=== PATIENT | female | born 1930 | race Caucasian/White ===

== ENCOUNTER 2018-10-29 11:36 | Inpatient (IN) | payer MEDICARE ==
--- NOTE | 2018-10-29 14:34 | CR ---
DATE OF SERVICE: 10/29/18 CLINICAL DATA: Cough. PA AND LATERAL CHEST: Comparison is made to a prior exam dated 10/08/18. The heart size is stable. The aorta is calcified and ectatic. There is persistent increased density in the left lung base consistent with basilar atelectasis or infiltrate. There is mild progression from the prior exam. There is blunting of both costophrenic angles consistent with bilateral pleural effusions. The exam is otherwise unchanged from the prior. Continued followup is recommended. [id number] [facility]
[2018-10-29] MEDS ORDERED: Furosemide 20 MG/2 ML VIAL IVPUSH ONE (14:53)
[2018-10-29] MEDS ORDERED: Levofloxacin/Dextrose 5%-Water 500 MG in Premix Bag 1 BAG IV SCH (15:00)
[2018-10-29] MEDS ORDERED: cefTRIAXone 1 GM in Sodium Chloride 0.9% 50 ML IV SCH (15:00)
[2018-10-29] MEDS: Albuterol/Ipratropium 3.0-0.5 MG/3 ML Neb Soln NEB SCH ×2 (15:15→21:50)
[2018-10-29] MEDS ORDERED: Levofloxacin/Dextrose 5%-Water 100 ML IV ONE (15:56)
--- NOTE | 2018-10-29 17:24 | PCM.HP.2 ---
H&P History of Present Illness - General Date of Service: 10/29/18 Admit Problem/Dx: Admission Diagnosis/Problem Admission Diagnosis/Problem Pneumonia Source of Information: Patient, RN, Other (friend) History Limitations: Reports: No Limitations - History of Present Illness Initial Comments - Free Text/Narative: 88 yr female with cough and congestion, pneumonia, seen in the clinic today, Chest X-ray with right lower lobe pneumonia and SpO2 of 80% on room air, no fever and no leukocytosis noted. She does live alone and is very ill and hospitalized. States no immediate family in the area. Friend states her appetite is poor and not doing very well. She did have this increase in cough and congestion about 1 month ago and did get some better and now symptoms are worse. - Related Data Allergies/Adverse Reactions: Allergies Allergy/AdvReac Type Severity Reaction Status Date / Time erythromycin base Allergy Rash Verified 12/25/15 12:03 sulfamethoxazole Allergy Vomiting Verified 12/25/15 12:03 [From Bactrim] trimethoprim [From Bactrim] Allergy Vomiting Verified 12/25/15 12:03 Home Medications: Home Meds glipiZIDE [Glipizide Xl] 10 mg PO DAILY 06/20/14 [History] metFORMIN HCl [Metformin HCl] 850 mg PO BID 06/20/14 [History] Apixaban [Eliquis] 5 mg PO BID 12/25/15 [History] Aspirin [Sedrick Chewable] 81 mg PO DAILY 12/25/15 [History] Carvedilol 12.5 mg PO BID 12/25/15 [History] Clopidogrel [Plavix] 75 mg PO DAILY 12/25/15 [History] Hydrochlorothiazide 25 mg PO DAILY 12/25/15 [History] Nitroglycerin [IJP: Nitroglycerin] 0.4 mg SL ASDIRECTED 12/25/15 [History] Pantoprazole Sodium 40 mg PO ACBREAKFAST 12/25/15 [History] atorvaSTATin Calcium [Atorvastatin Calcium] 40 mg PO QPM 12/25/15 [History] Losartan [Cozaar] 25 mg PO DAILY 10/29/18 [History] H&P Review of Systems - Review of Systems: Review Of Systems: See Below General: Reports: Weakness. Denies: Fever, Chills Pulmonary: Reports: Shortness of Breath, Cough, Sputum Cardiovascular: Reports: Dyspnea on Exertion, Edema. Denies: Chest Pain, Palpitations Gastrointestinal: Denies: Abdominal Pain, Constipation, Diarrhea Genitourinary: Denies: Dysuria Psychiatric: Reports: No Symptoms Neurological: Reports: No Symptoms Exam - Exam Exam: See Below - Vital Signs Vital Signs: Last Vital Signs Temp 98.1 F 10/29/18 14:47 Pulse 65 10/29/18 14:47 Resp 20 10/29/18 14:47 BP 155/89 H 10/29/18 14:47 Pulse Ox 91 L 10/29/18 15:05 Weight: 214 lb 6.4 oz - Exam General: Alert, Oriented, Cooperative, Mild Distress HEENT: PERRLA, Mucosa Moist & [place] Neck: Supple, Trachea Midline Lungs: Crackles (to bases), Rhonchi (mid lung hernandez) Cardiovascular: Regular Rate, Regular Rhythm GI/Abdominal Exam: Normal Bowel Sounds, Soft, Non-Tender Extremities: Normal Range of Motion, Normal Capillary Refill, Pedal Edema, Other (edema about 1/3 up lower legs, worse to right leg) Peripheral Pulses: 2+: Dorsalis Pedis (L), Dorsalis Pedis (R) Skin: Warm, Dry Neuro Extensive - Mental Status: Alert, Oriented x3, Normal Mood/Affect, Normal Cognition Psychiatric: Alert, Normal Affect, Normal Mood - Patient Data Lab Results Last 24 hrs: Laboratory Results - last 24 hr 10/29/18 10/29/18 Range/Units 11:45 11:45 WBC 6.5 (4.0-11.0) K/uL RBC 3.53 L (3.80-5.80) M/uL Hgb 11.1 L (11.5-16.5) g/dL Hct 36.6 L (37.0-47.0) % MCV 104 H (76-96) fL MCH 31.4 (27.0-32.0) pg MCHC 30.3 L (31.0-35.0) g/dL RDW 16.0 (11.0-16.0) % Plt Count 228 (150-500) K/uL MPV 9.9 (6.0-10.0) fL Neut % (Auto) 75.6 H (45.0-70.0) % Lymph % (Auto) 14.4 L (20.0-40.0) % [place] % (Auto) 7.4 (3.0-10.0) % Eos % (Auto) 2.3 (1.0-5.0) % Baso % (Auto) 0.3 (0.0-0.5) % Neut # (Auto) 4.94 (2.00-7.50) K/uL Lymph # (Auto) 0.94 L (1.50-4.00) K/uL [place] # (Auto) 0.48 (0.20-0.80) K/uL Eos # (Auto) 0.15 (0.04-0.40) K/uL Baso # (Auto) 0.02 (0.02-0.10) K/uL Sodium 142 (136-145) mmol/L Potassium 5.3 H (3.5-5.1) mmol/L Chloride 109 H (98-107) mmol/L Carbon Dioxide 27.4 (21.0-32.0) mmol/L Anion Gap 10.9 (5.0-15.0) mmol/L BUN 35 H (8-26) mg/dL Creatinine 1.41 H (0.55-1.02) mg/dL Est Cr Clr Drug Dosing TNP Estimated GFR (MDRD) 35 L (>60) MLS/MIN BUN/Creatinine Ratio 24.8 (6-25) Glucose 169 H (74-100) mg/dL Calcium 8.5 (8.5-10.1) mg/dL Result Diagrams: 10/29/18 11:45 10/29/18 11:45 - Problem List (1) Pneumonia SNOMED Code(s): 566987235 ICD Code: J18.9 - PNEUMONIA, UNSPECIFIED ORGANISM Status: Acute Current Visit: Yes (2) Swelling of both lower extremities SNOMED Code(s): 842090282 ICD Code: M79.89 - OTHER SPECIFIED SOFT TISSUE DISORDERS Status: Acute Current Visit: Yes (3) Diabetes mellitus SNOMED Code(s): 96968524 ICD Code: E11.9 - TYPE 2 DIABETES MELLITUS WITHOUT COMPLICATIONS Status: Acute Current Visit: Yes Problem List Initiated/Reviewed/Updated: Yes Orders Last 24hrs: Active Orders 24 hr Category Date Time Status Patient Status [ADT] Routine ADT 10/29/18 14:47 Active Bedrest Bathroom Privileges [RC] ASDIRECTED Care 10/29/18 14:47 Active Blood Glucose Check, Bedside [RC] TIDAC Care 10/29/18 14:53 Active Oxygen Therapy [RC] PRN Care 10/29/18 14:47 Active RT Aerosol Therapy [RC] ASDIRECTED Care 10/29/18 14:49 Active Vital Signs [RC] Q4H Care 10/29/18 14:47 Active CULTURE MRSA SURVEY [] Routine Lab 10/29/18 14:49 Received Albuterol/Ipratropium [DuoNeb 3.0-0.5 MG/3 ML] Med 10/29/18 15:00 Active 3 ml NEB Q6H Levofloxacin/Dextrose 5%-Water [Levaquin in D5W 500 MG/ Med 10/30/18 08:00 Active 100 ML] 100 ml IV DAILY Levofloxacin/Dextrose 5%-Water [Levaquin in D5W 500 MG/ Med 10/29/18 15:00 Active 100 ML] 500 mg Premix Bag 1 bag IV ASDIRECTED Medication Orders Albuterol/Ipratropium (Duoneb 3.0-0.5 Mg/3 Ml) 3 ml NEB Q6H [facility] Last Admin: 10/29/18 15:15 Dose: 3 ml Levofloxacin/Dextrose 500 mg/ (Premix) 100 mls @ 100 mls/hr IV ASDIRECTED [facility] Stop: 10/29/18 23:59 Last Admin: 10/29/18 16:25 Dose: 100 mls/hr Levofloxacin/Dextrose (Levaquin In D5w 500 Mg/100 Ml) 100 mls @ 100 mls/hr IV DAILY [facility] Stop: 11/05/18 23:59
[2018-10-29] MEDS: Hydrochlorothiazide 25 MG Tab PO SCH (18:27)
[2018-10-29] MEDS: Apixaban 5 MG Tab PO SCH (20:46)
[2018-10-29] MEDS: Carvedilol 12.5 MG Tab PO SCH (20:46)
[2018-10-30] MEDS: Albuterol/Ipratropium 3.0-0.5 MG/3 ML Neb Soln NEB SCH ×4 (03:55→20:07)
[2018-10-30] MEDS ORDERED: Albuterol/Ipratropium 3.0-0.5 MG/3 ML Neb Soln ONE ×3 (04:00→15:51)
[2018-10-30] MEDS: Pantoprazole 40 MG Tab.CR PO SCH (06:37)
[2018-10-30] MEDS ORDERED: Furosemide 40 MG/4 ML VIAL IVPUSH ONE (08:32)
--- NOTE | 2018-10-30 08:39 | PCM.PN ---
- General Info Date of Service: 10/30/18 Admission Dx/Problem (Free Text): Admission Diagnosis/Problem Admission Diagnosis/Problem Pneumonia Subjective Update: States she continues with shortness of breath, but is improved. - Review of Systems General: Reports: Weakness. Denies: Fever Pulmonary: Reports: Shortness of Breath, Cough Cardiovascular: Reports: Dyspnea on Exertion, Edema. Denies: Chest Pain, Palpitations Genitourinary: Reports: Other (Staff report foul smelling urine today). Denies : Dysuria, Pain Neurological: Reports: No Symptoms Psychiatric: Reports: No Symptoms - Patient Data Vitals - Most Recent: Last Vital Signs Temp 98.2 F 10/30/18 06:00 Pulse 62 10/30/18 06:00 Resp 18 10/30/18 06:00 BP 148/77 H 10/30/18 06:00 Pulse Ox 94 L 10/30/18 06:00 Weight - Most Recent: 214 lb 6.4 oz I&O - Last 24 Hours: Intake & Output 10/29/18 10/30/18 10/30/18 22:59 06:59 14:59 Intake Total 100 Balance 100 Lab Results Last 24 Hours: Laboratory Results - last 24 hr 10/29/18 10/29/18 10/29/18 Range/Units 11:45 11:45 16:16 WBC 6.5 (4.0-11.0) K/uL RBC 3.53 L (3.80-5.80) M/uL Hgb 11.1 L (11.5-16.5) g/dL Hct 36.6 L (37.0-47.0) % MCV 104 H (76-96) fL MCH 31.4 (27.0-32.0) pg MCHC 30.3 L (31.0-35.0) g/dL RDW 16.0 (11.0-16.0) % Plt Count 228 (150-500) K/uL MPV 9.9 (6.0-10.0) fL Neut % (Auto) 75.6 H (45.0-70.0) % Lymph % (Auto) 14.4 L (20.0-40.0) % [place] % (Auto) 7.4 (3.0-10.0) % Eos % (Auto) 2.3 (1.0-5.0) % Baso % (Auto) 0.3 (0.0-0.5) % Neut # (Auto) 4.94 (2.00-7.50) K/uL Lymph # (Auto) 0.94 L (1.50-4.00) K/uL [place] # (Auto) 0.48 (0.20-0.80) K/uL Eos # (Auto) 0.15 (0.04-0.40) K/uL Baso # (Auto) 0.02 (0.02-0.10) K/uL Sodium 142 (136-145) mmol/L Potassium 5.3 H (3.5-5.1) mmol/L Chloride 109 H (98-107) mmol/L Carbon Dioxide 27.4 (21.0-32.0) mmol/L Anion Gap 10.9 (5.0-15.0) mmol/L BUN 35 H (8-26) mg/dL Creatinine 1.41 H (0.55-1.02) mg/dL Est Cr Clr Drug Dosing TNP Estimated GFR (MDRD) 35 L (>60) MLS/MIN BUN/Creatinine Ratio 24.8 (6-25) Glucose 169 H (74-100) mg/dL POC Glucose 81 (74-110) mg/dL Calcium 8.5 (8.5-10.1) mg/dL 10/30/18 10/30/18 Range/Units 07:20 07:20 WBC 7.7 (4.0-11.0) K/uL RBC 3.37 L (3.80-5.80) M/uL Hgb 10.5 L (11.5-16.5) g/dL Hct 34.7 L (37.0-47.0) % MCV 103 H (76-96) fL MCH 31.2 (27.0-32.0) pg MCHC 30.3 L (31.0-35.0) g/dL RDW 16.0 (11.0-16.0) % Plt Count 216 (150-500) K/uL MPV 9.8 (6.0-10.0) fL Neut % (Auto) 69.7 (45.0-70.0) % Lymph % (Auto) 16.3 L (20.0-40.0) % [place] % (Auto) 9.4 (3.0-10.0) % Eos % (Auto) 4.3 (1.0-5.0) % Baso % (Auto) 0.3 (0.0-0.5) % Neut # (Auto) 5.35 (2.00-7.50) K/uL Lymph # (Auto) 1.25 L (1.50-4.00) K/uL [place] # (Auto) 0.72 (0.20-0.80) K/uL Eos # (Auto) 0.33 (0.04-0.40) K/uL Baso # (Auto) 0.02 (0.02-0.10) K/uL Sodium 142 (136-145) mmol/L Potassium 4.9 (3.5-5.1) mmol/L Chloride 105 (98-107) mmol/L Carbon Dioxide 33.0 H D (21.0-32.0) mmol/L Anion Gap 8.9 (5.0-15.0) mmol/L BUN 33 H (8-26) mg/dL Creatinine 1.20 H (0.55-1.02) mg/dL Est Cr Clr Drug Dosing 35.17 Estimated GFR (MDRD) 43 L (>60) MLS/MIN BUN/Creatinine Ratio 27.5 H (6-25) Glucose 73 L D (74-100) mg/dL POC Glucose (74-110) mg/dL Calcium 8.5 (8.5-10.1) mg/dL Med Orders - Current: Current Medications Albuterol/Ipratropium (Duoneb 3.0-0.5 Mg/3 Ml) 3 ml NEB Q6H [facility] Last Admin: 10/30/18 03:55 Dose: 3 ml Apixaban (Eliquis) 5 mg PO BID [facility] Last Admin: 10/29/18 20:46 Dose: 5 mg Aspirin (Halfprin) 81 mg PO DAILY [facility] Carvedilol (Coreg) 12.5 mg PO BID [facility] Last Admin: 10/29/18 20:46 Dose: 12.5 mg Clopidogrel Bisulfate (Plavix) 75 mg PO DAILY [facility] Furosemide (Lasix) 40 mg IVPUSH NOW ONE Stop: 10/30/18 08:33 Hydrochlorothiazide (Hydrochlorothiazide) 25 mg PO DAILY [facility] Last Admin: 10/29/18 18:27 Dose: Not Given Levofloxacin/Dextrose (Levaquin In D5w 500 Mg/100 Ml) 100 mls @ 100 mls/hr IV DAILY [facility] Stop: 11/05/18 23:59 Non-Formulary Medication (Metformin Hcl [Metformin Hcl]) 850 mg PO BID [facility] Pantoprazole Sodium (Protonix) 40 mg PO ACBREAKFAST [facility] Last Admin: 10/30/18 06:37 Dose: 40 mg Valsartan (Diovan) 40 mg PO DAILY [facility] Discontinued Medications Albuterol/Ipratropium (Duoneb 3.0-0.5 Mg/3 Ml) Confirm Administered Dose 3 ml .ROUTE .STK-MED ONE Stop: 10/30/18 04:01 Last Admin: 10/30/18 05:04 Dose: Not Given Furosemide (Lasix) 20 mg IVPUSH ONETIME ONE Stop: 10/29/18 14:54 Last Admin: 10/29/18 16:19 Dose: 20 mg Ceftriaxone Sodium 1 gm/ (Sodium Chloride) 50 mls @ 200 mls/hr IV Q24H [facility] Levofloxacin/Dextrose 500 mg/ (Premix) 100 mls @ 100 mls/hr IV ASDIRECTED [facility] Stop: 10/29/18 23:59 Last Admin: 10/29/18 16:25 Dose: 100 mls/hr Levofloxacin/Dextrose (Levaquin In D5w 500 Mg/100 Ml) Confirm Administered Dose 100 mls @ as directed IV .STK-MED ONE Stop: 10/29/18 15:57 Last Admin: 10/29/18 16:20 Dose: Not Given - Exam Quality Assessment: Supplemental Oxygen General: Alert, Oriented, Cooperative HEENT: Mucous Membr. Moist/[place] Neck: Supple, Trachea Midline Lungs: Decreased Breath Sounds, Crackles (bases bilaterally). No: Rhonchi, Wheezing Cardiovascular: Regular Rate, Regular Rhythm GI/Abdominal Exam: Normal Bowel Sounds, Soft, Non-Tender Extremities: Pedal Edema, Other (edema improved, persist 1/3 of lower leg, bilaterally) Peripheral Pulses: 2+: Dorsalis Pedis (L), Dorsalis Pedis (R) Skin: Warm, Dry Psy/Mental Status: Alert, Normal Affect, Normal Mood - Problem List & Annotations (1) Pneumonia SNOMED Code(s): 934655923 Code(s): J18.9 - PNEUMONIA, UNSPECIFIED ORGANISM Status: Acute Current Visit: Yes (2) Swelling of both lower extremities SNOMED Code(s): 475567603 Code(s): M79.89 - OTHER SPECIFIED SOFT TISSUE DISORDERS Status: Acute Current Visit: Yes (3) Diabetes mellitus SNOMED Code(s): 16968746 Code(s): E11.9 - TYPE 2 DIABETES MELLITUS WITHOUT COMPLICATIONS Status: Acute Current Visit: Yes - Problem List Review Problem List Initiated/Reviewed/Updated: Yes - My Orders Last 24 Hours: My Active Orders 10/29/18 14:47 Patient Status [ADT] Routine Bedrest Bathroom Privileges [RC] ASDIRECTED Oxygen Therapy [RC] PRN Vital Signs [RC] Q4H 10/29/18 14:49 RT Aerosol Therapy [RC] ASDIRECTED CULTURE MRSA SURVEY [] Routine 10/29/18 14:53 Blood Glucose Check, Bedside [RC] TIDAC 10/29/18 15:00 Albuterol/Ipratropium [DuoNeb 3.0-0.5 MG/3 ML] 3 ml NEB Q6H 10/29/18 17:30 hydroCHLOROthiazide 25 mg PO DAILY 10/29/18 17:32 Weight, Daily [Height and Weight] [RC] DAILY 10/29/18 20:00 Apixaban [Eliquis] 5 mg PO BID Carvedilol [Coreg] 12.5 mg PO BID metFORMIN HCl [Metformin HCl] 850 mg PO BID 10/30/18 07:00 Pantoprazole [ProTONIX] 40 mg PO ACBREAKFAST 10/30/18 08:00 Aspirin [Halfprin] 81 mg PO DAILY Clopidogrel [Plavix] 75 mg PO DAILY Levofloxacin/Dextrose 5%-Water [Levaquin in D5W 500 MG/100 ML] 100 ml IV DAILY Valsartan [Diovan] 40 mg PO DAILY 10/30/18 08:32 Furosemide [Lasix] 40 mg IVPUSH NOW ONE 10/30/18 Breakfast Consistent Carbohydrate Diet [DIET] - Plan Plan:: Pneumonia: CBC repeat and no leukocytosis noted. Continue with Levofloxacin daily. Swelling to lower extremities: Lasix 40 mg IV X 1 today. Daily weights. Repeat labs in am.
[2018-10-30] MEDS: Valsartan 40 MG Tab PO SCH (08:51)
[2018-10-30] MEDS: Aspirin 81 MG Tab.EC PO SCH (08:51)
[2018-10-30] MEDS: Apixaban 5 MG Tab PO SCH ×2 (08:51→22:54)
[2018-10-30] MEDS: METFORMIN HCL 850 MG PO SCH ×3 (08:51→22:55)
[2018-10-30] MEDS: Clopidogrel 75 MG Tab PO SCH (08:53)
[2018-10-30] MEDS: Hydrochlorothiazide 25 MG Tab PO SCH (08:53)
[2018-10-30] MEDS: Carvedilol 12.5 MG Tab PO SCH ×2 (08:53→20:03)
[2018-10-30] MEDS: Levofloxacin/Dextrose 5%-Water 100 ML IV SCH (08:56)
[2018-10-30] MEDS ORDERED: Furosemide 40 MG/4 ML VIAL ONE (11:30)
[2018-10-30] MEDS: Melatonin 3 MG Tab PO SCH (20:06)
[2018-10-30] MEDS: Codeine/guaiFENesin 100-10 MG/5 ML Syrup 5 ML Cup PO PRN (21:00)
[2018-10-31] MEDS ORDERED: Albuterol/Ipratropium 3.0-0.5 MG/3 ML Neb Soln ONE ×3 (03:06→15:40)
[2018-10-31] MEDS: Albuterol/Ipratropium 3.0-0.5 MG/3 ML Neb Soln NEB SCH ×4 (06:35→20:12)
[2018-10-31] MEDS: Aspirin 81 MG Tab.EC PO SCH (08:24)
[2018-10-31] MEDS: Clopidogrel 75 MG Tab PO SCH (08:24)
[2018-10-31] MEDS: Codeine/guaiFENesin 100-10 MG/5 ML Syrup 5 ML Cup PO PRN ×3 (08:24→20:18)
[2018-10-31] MEDS: Hydrochlorothiazide 25 MG Tab PO SCH (08:24)
[2018-10-31] MEDS: Valsartan 40 MG Tab PO SCH (08:24)
[2018-10-31] MEDS: Apixaban 5 MG Tab PO SCH ×2 (08:25→20:12)
[2018-10-31] MEDS: Carvedilol 12.5 MG Tab PO SCH ×2 (08:25→20:11)
[2018-10-31] MEDS: Pantoprazole 40 MG Tab.CR PO SCH (08:25)
--- NOTE | 2018-10-31 08:54 | PCM.PN ---
- General Info Date of Service: 10/31/18 Admission Dx/Problem (Free Text): Admission Diagnosis/Problem Admission Diagnosis/Problem Pneumonia Subjective Update: States her cough persists and not feeling much better. Staff report pt sleeping improved, coughing less and weight loss with less peripheral edema. Functional Status: Reports: Pain Controlled, Tolerating Diet, Urinating, Incentive Spirometry - Review of Systems General: Reports: Weakness HEENT: Reports: Glasses. Denies: Headaches, Sore Throat Pulmonary: Reports: Cough, Sputum Cardiovascular: Reports: Dyspnea on Exertion, Edema. Denies: Chest Pain, Palpitations Gastrointestinal: Reports: Decreased Appetite. Denies: Diarrhea, Nausea Genitourinary: Reports: No Symptoms Musculoskeletal: Reports: No Symptoms Skin: Reports: No Symptoms Neurological: Reports: No Symptoms - Patient Data Vitals - Most Recent: Last Vital Signs Temp 98.3 F 10/30/18 16:45 Pulse 57 L 10/31/18 08:25 Resp 18 10/30/18 06:00 BP 147/58 H 10/31/18 08:25 Pulse Ox 98 10/30/18 16:45 Weight - Most Recent: 209 lb 8 oz I&O - Last 24 Hours: Intake & Output 10/30/18 10/31/18 10/31/18 22:59 06:59 14:59 Intake Total 1800 50 Balance 1800 50 Lab Results Last 24 Hours: Laboratory Results - last 24 hr 10/30/18 10/30/18 10/31/18 Range/Units 10:57 15:49 07:15 WBC 6.2 (4.0-11.0) K/uL RBC 3.19 L (3.80-5.80) M/uL Hgb 9.9 L (11.5-16.5) g/dL Hct 32.9 L (37.0-47.0) % MCV 103 H (76-96) fL MCH 31.0 (27.0-32.0) pg MCHC 30.1 L (31.0-35.0) g/dL RDW 15.8 (11.0-16.0) % Plt Count 233 (150-500) K/uL MPV 9.8 (6.0-10.0) fL Neut % (Auto) 63.3 (45.0-70.0) % Lymph % (Auto) 20.8 (20.0-40.0) % [place] % (Auto) 10.6 H (3.0-10.0) % Eos % (Auto) 5.0 (1.0-5.0) % Baso % (Auto) 0.3 (0.0-0.5) % Neut # (Auto) 3.95 (2.00-7.50) K/uL Lymph # (Auto) 1.30 L (1.50-4.00) K/uL [place] # (Auto) 0.66 (0.20-0.80) K/uL Eos # (Auto) 0.31 (0.04-0.40) K/uL Baso # (Auto) 0.02 (0.02-0.10) K/uL Sodium (136-145) mmol/L Potassium (3.5-5.1) mmol/L Chloride (98-107) mmol/L Carbon Dioxide (21.0-32.0) mmol/L Anion Gap (5.0-15.0) mmol/L BUN (8-26) mg/dL Creatinine (0.55-1.02) mg/dL Est Cr Clr Drug Dosing mL/min Estimated GFR (MDRD) (>60) MLS/MIN BUN/Creatinine Ratio (6-25) Glucose (74-100) mg/dL POC Glucose 129 H 73 L (74-110) mg/dL Calcium (8.5-10.1) mg/dL 10/31/18 Range/Units 07:15 WBC (4.0-11.0) K/uL RBC (3.80-5.80) M/uL Hgb (11.5-16.5) g/dL Hct (37.0-47.0) % MCV (76-96) fL MCH (27.0-32.0) pg MCHC (31.0-35.0) g/dL RDW (11.0-16.0) % Plt Count (150-500) K/uL MPV (6.0-10.0) fL Neut % (Auto) (45.0-70.0) % Lymph % (Auto) (20.0-40.0) % [place] % (Auto) (3.0-10.0) % Eos % (Auto) (1.0-5.0) % Baso % (Auto) (0.0-0.5) % Neut # (Auto) (2.00-7.50) K/uL Lymph # (Auto) (1.50-4.00) K/uL [place] # (Auto) (0.20-0.80) K/uL Eos # (Auto) (0.04-0.40) K/uL Baso # (Auto) (0.02-0.10) K/uL Sodium 140 (136-145) mmol/L Potassium 5.4 H (3.5-5.1) mmol/L Chloride 102 (98-107) mmol/L Carbon Dioxide 33.3 H (21.0-32.0) mmol/L Anion Gap 10.1 (5.0-15.0) mmol/L BUN 34 H (8-26) mg/dL Creatinine 1.43 H (0.55-1.02) mg/dL Est Cr Clr Drug Dosing 29.51 mL/min Estimated GFR (MDRD) 35 L (>60) MLS/MIN BUN/Creatinine Ratio 23.8 (6-25) Glucose 118 H D (74-100) mg/dL POC Glucose (74-110) mg/dL Calcium 7.9 L (8.5-10.1) mg/dL [place] Results Last 24 Hours: Microbiology 10/29/18 14:49 MRSA Surveillance Culture - Final Nasal, Right NO MRSA ISOLATED Med Orders - Current: Current Medications Albuterol/Ipratropium (Duoneb 3.0-0.5 Mg/3 Ml) 3 ml NEB Q6H [facility] [place] Last Admin: 10/31/18 06:35 Dose: Not Given Apixaban (Eliquis) 5 mg PO BID [facility] [place] Last Admin: 10/31/18 08:25 Dose: 5 mg Aspirin (Halfprin) 81 mg PO DAILY [facility] [place] Last Admin: 10/31/18 08:24 Dose: 81 mg Carvedilol (Coreg) 12.5 mg PO BID [facility] Last Admin: 10/31/18 08:25 Dose: 12.5 mg Clopidogrel Bisulfate (Plavix) 75 mg PO DAILY [facility] Last Admin: 10/31/18 08:24 Dose: 75 mg Guaifenesin/Codeine Phosphate (Robitussin Ac) 5 ml PO Q4H PRN PRN Reason: Cough Last Admin: 10/31/18 08:24 Dose: 5 ml Hydrochlorothiazide (Hydrochlorothiazide) 25 mg PO DAILY [facility] Last Admin: 10/31/18 08:24 Dose: 25 mg Levofloxacin (Levaquin) 500 mg PO Q24H [facility] Melatonin (Melatonin) 3 mg PO BEDTIME [facility] Last Admin: 10/30/18 20:06 Dose: 3 mg Non-Formulary Medication (Metformin Hcl [Metformin Hcl]) 850 mg PO BID [facility] [place] Last Admin: 10/30/18 22:55 Dose: Not Given Pantoprazole Sodium (Protonix) 40 mg PO ACBREAKFAST [facility] Last Admin: 10/31/18 08:25 Dose: 40 mg Valsartan (Diovan) 20 mg PO DAILY [facility] Discontinued Medications Albuterol/Ipratropium (Duoneb 3.0-0.5 Mg/3 Ml) Confirm Administered Dose 3 ml .ROUTE .STK-MED ONE Stop: 10/30/18 04:01 Last Admin: 10/30/18 05:04 Dose: Not Given Albuterol/Ipratropium (Duoneb 3.0-0.5 Mg/3 Ml) Confirm Administered Dose 3 ml .ROUTE .STK-MED ONE Stop: 10/30/18 09:58 Last Admin: 10/30/18 11:23 Dose: Not Given Albuterol/Ipratropium (Duoneb 3.0-0.5 Mg/3 Ml) Confirm Administered Dose 3 ml .ROUTE .STK-MED ONE Stop: 10/30/18 15:52 Last Admin: 10/30/18 16:14 Dose: Not Given Albuterol/Ipratropium (Duoneb 3.0-0.5 Mg/3 Ml) Confirm Administered Dose 3 ml .ROUTE .STK-MED ONE Stop: 10/31/18 03:07 Last Admin: 10/31/18 05:02 Dose: Not Given Albuterol/Ipratropium (Duoneb 3.0-0.5 Mg/3 Ml) Confirm Administered Dose 3 ml .ROUTE .STK-MED ONE Stop: 10/31/18 08:51 Furosemide (Lasix) 20 mg IVPUSH ONETIME ONE Stop: 10/29/18 14:54 Last Admin: 10/29/18 16:19 Dose: 20 mg Furosemide (Lasix) 40 mg IVPUSH NOW ONE Stop: 10/30/18 08:33 Last Admin: 10/30/18 11:37 Dose: 40 mg Furosemide (Lasix) Confirm Administered Dose 40 mg .ROUTE .STK-MED ONE Stop: 10/30/18 11:31 Last Admin: 10/30/18 11:49 Dose: Not Given Ceftriaxone Sodium 1 gm/ (Sodium Chloride) 50 mls @ 200 mls/hr IV Q24H [facility] [place] Levofloxacin/Dextrose 500 mg/ (Premix) 100 mls @ 100 mls/hr IV ASDIRECTED [facility] [place] Stop: 10/29/18 23:59 Last Admin: 10/29/18 16:25 Dose: 100 mls/hr Levofloxacin/Dextrose (Levaquin In D5w 500 Mg/100 Ml) 100 mls @ 100 mls/hr IV DAILY [facility] [place] Stop: 11/05/18 23:59 Last Admin: 10/30/18 08:56 Dose: 100 mls/hr Levofloxacin/Dextrose (Levaquin In D5w 500 Mg/100 Ml) Confirm Administered Dose 100 mls @ as directed IV .STK-MED ONE Stop: 10/29/18 15:57 Last Admin: 10/29/18 16:20 Dose: Not Given Valsartan (Diovan) 40 mg PO DAILY [facility] [place] Last Admin: 10/31/18 08:24 Dose: 40 mg - Exam Quality Assessment: Supplemental Oxygen General: Alert, Oriented, Cooperative, No Acute Distress HEENT: Mucous Membr. Moist/[place] Neck: Supple, Trachea Midline, No JVD Lungs: Crackles (left base), Rhonchi (middle lung hernandez bilaterally), Other ( harsh, barky cough) Cardiovascular: Regular Rate, Regular Rhythm GI/Abdominal Exam: Normal Bowel Sounds, Soft, Non-Tender Extremities: Pedal Edema, Other (tenderness to right lower leg with palpation) Peripheral Pulses: 2+: Dorsalis Pedis (L), Dorsalis Pedis (R) Skin: Warm, Dry Neurological: No New Focal Deficit Psy/Mental Status: Alert, Normal Affect, Normal Mood - Problem List & Annotations (1) Pneumonia SNOMED Code(s): 164414251 Code(s): J18.9 - PNEUMONIA, UNSPECIFIED ORGANISM Status: Acute Current Visit: Yes (2) Swelling of both lower extremities SNOMED Code(s): 292367167 Code(s): M79.89 - OTHER SPECIFIED SOFT TISSUE DISORDERS Status: Acute Current Visit: Yes (3) Diabetes mellitus SNOMED Code(s): 09929174 Code(s): E11.9 - TYPE 2 DIABETES MELLITUS WITHOUT COMPLICATIONS Status: Acute Current Visit: Yes - Problem List Review Problem List Initiated/Reviewed/Updated: Yes - My Orders Last 24 Hours: My Active Orders 10/30/18 08:00 Aspirin [Halfprin] 81 mg PO DAILY Clopidogrel [Plavix] 75 mg PO DAILY 10/30/18 20:00 Melatonin 3 mg PO BEDTIME 10/31/18 08:03 Hemoccult [Fecal Occult Blood Collection] [RC] ASDIRECTED 10/31/18 08:15 levoFLOXacin [Levaquin] 500 mg PO Q24H 11/01/18 08:00 BASIC METABOLIC PANEL,BMP [CHEM] Routine Valsartan [Diovan] 20 mg PO DAILY - Plan Plan:: Pneumonia: CBC repeat and no leukocytosis noted. Continue with Levofloxacin daily. Swelling to lower extremities: Lasix 40 mg IV X 1 today. Daily weights. Repeat labs in am. - Consistent, persistent cough this am. WBC 6.2, Hgb 9.9 today. Potassium 5.4 and FBS 118. Pneumonia: Will change to Levaquin 500 mg PO daily. Continue with duo-neb qid. Cough medicine prn as ordered. Anemia: Stool for occult blood. Continue Protonix as ordered. Will start multivitamin daily. Swelling of lower legs is improved, will hold on Lasix IV today. Repeat labs in am.
[2018-10-31] MEDS: METFORMIN HCL 850 MG PO SCH ×2 (09:54→20:18)
[2018-10-31] MEDS: Levofloxacin 500 MG Tab PO SCH (09:54)
[2018-10-31] MEDS: Melatonin 3 MG Tab PO SCH (20:10)
[2018-10-31] MEDS: Multivitamins with Iron/Calcium/Folic Acid/Minerals Tab PO SCH (20:11)
[2018-11-01] MEDS: Albuterol/Ipratropium 3.0-0.5 MG/3 ML Neb Soln NEB SCH ×4 (06:47→19:02)
[2018-11-01] MEDS: Levofloxacin/Dextrose 5%-Water 100 ML IV SCH (07:22)
[2018-11-01] MEDS: Aspirin 81 MG Tab.EC PO SCH (07:53)
[2018-11-01] MEDS: Valsartan 40 MG Tab PO SCH (07:53)
[2018-11-01] MEDS: Hydrochlorothiazide 25 MG Tab PO SCH (07:53)
[2018-11-01] MEDS: Pantoprazole 40 MG Tab.CR PO SCH (07:53)
[2018-11-01] MEDS: Clopidogrel 75 MG Tab PO SCH (07:53)
[2018-11-01] MEDS: Carvedilol 12.5 MG Tab PO SCH ×2 (07:55→19:03)
[2018-11-01] MEDS: Levofloxacin 500 MG Tab PO SCH (07:55)
[2018-11-01] MEDS: Multivitamins with Iron/Calcium/Folic Acid/Minerals Tab PO SCH (07:55)
[2018-11-01] MEDS: Apixaban 5 MG Tab PO SCH ×2 (07:56→19:02)
[2018-11-01] MEDS: METFORMIN HCL 850 MG PO SCH ×2 (08:00→19:09)
[2018-11-01] MEDS ORDERED: methylPREDNISolone Sodium Succinate 125 MG/2 ML SDV ONE (08:50)
[2018-11-01] MEDS ORDERED: methylPREDNISolone Sodium Succinate 125 MG/2 ML SDV IVPUSH ONE (09:00)
[2018-11-01] MEDS: Codeine/guaiFENesin 100-10 MG/5 ML Syrup 5 ML Cup PO PRN ×3 (09:05→19:01)
[2018-11-01] MEDS ORDERED: Sodium Chloride 0.9% 500 ML IV ONE (09:36)
[2018-11-01] MEDS: Sodium Chloride 0.9% 20 ML SDV FLUSH SCH (10:00)
[2018-11-01] MEDS: predniSONE 20 MG Tab PO SCH (10:00)
[2018-11-01] MEDS ORDERED: predniSONE 20 MG Tab ONE (10:03)
[2018-11-01] MEDS ORDERED: Albuterol/Ipratropium 3.0-0.5 MG/3 ML Neb Soln ONE ×3 (10:27→18:58)
[2018-11-01] MEDS: Sodium Chloride 0.9% 1,000 ML IV SCH ×2 (12:00→15:35)
--- NOTE | 2018-11-01 14:55 | PCM.PN ---
- General Info Date of Service: 11/01/18 Admission Dx/Problem (Free Text): Admission Diagnosis/Problem Admission Diagnosis/Problem Pneumonia Subjective Update: cough is starting to loosen, She has the oxygen off this am and sitting in the chair and little peripheral edema noted. Functional Status: Reports: Pain Controlled, Ambulating, Urinating - Review of Systems General: Reports: Weakness. Denies: Fever, Chills HEENT: Reports: Other (States vision is changing and needs vision check-up. wearing glasses) Pulmonary: Reports: Cough. Denies: Shortness of Breath, Wheezing Cardiovascular: Reports: Dyspnea on Exertion. Denies: Chest Pain Gastrointestinal: Reports: Decreased Appetite, Other (vomitted this am with the strong, harsh coughing) Genitourinary: Reports: No Symptoms Musculoskeletal: Reports: No Symptoms Skin: Reports: Dryness Neurological: Reports: No Symptoms Psychiatric: Reports: No Symptoms - Patient Data Vitals - Most Recent: Last Vital Signs Temp 98.2 F 11/01/18 12:00 Pulse 66 11/01/18 12:00 Resp 22 H 11/01/18 12:00 BP 160/66 H 11/01/18 12:00 Pulse Ox 92 L 11/01/18 12:00 Weight - Most Recent: 212 lb 6.4 oz I&O - Last 24 Hours: Intake & Output 10/31/18 11/01/18 11/01/18 22:59 06:59 14:59 Intake Total 100 Balance 100 Lab Results Last 24 Hours: Laboratory Results - last 24 hr 10/31/18 11/01/18 11/01/18 Range/Units 16:16 06:39 07:50 Hgb (11.5-16.5) g/dL Hct (37.0-47.0) % Sodium 138 (136-145) mmol/L Potassium 5.6 H (3.5-5.1) mmol/L Chloride 101 (98-107) mmol/L Carbon Dioxide 31.1 (21.0-32.0) mmol/L Anion Gap 11.5 (5.0-15.0) mmol/L BUN 55 H* D (8-26) mg/dL Creatinine 2.40 H D (0.55-1.02) mg/dL Est Cr Clr Drug Dosing 17.58 mL/min Estimated GFR (MDRD) 19 L (>60) MLS/MIN BUN/Creatinine Ratio 22.9 (6-25) Glucose 196 H D (74-100) mg/dL POC Glucose 136 H 177 H (74-110) mg/dL Calcium 8.1 L (8.5-10.1) mg/dL 11/01/18 11/01/18 Range/Units 08:00 11:57 Hgb 11.3 L (11.5-16.5) g/dL Hct 36.8 L (37.0-47.0) % Sodium (136-145) mmol/L Potassium (3.5-5.1) mmol/L Chloride (98-107) mmol/L Carbon Dioxide (21.0-32.0) mmol/L Anion Gap (5.0-15.0) mmol/L BUN (8-26) mg/dL Creatinine (0.55-1.02) mg/dL Est Cr Clr Drug Dosing mL/min Estimated GFR (MDRD) (>60) MLS/MIN BUN/Creatinine Ratio (6-25) Glucose (74-100) mg/dL POC Glucose 189 H (74-110) mg/dL Calcium (8.5-10.1) mg/dL Med Orders - Current: Current Medications Albuterol/Ipratropium (Duoneb 3.0-0.5 Mg/3 Ml) 3 ml NEB Q6H [facility] Last Admin: 11/01/18 10:25 Dose: 3 ml Apixaban (Eliquis) 5 mg PO BID [facility] Last Admin: 11/01/18 07:56 Dose: 5 mg Aspirin (Halfprin) 81 mg PO DAILY [facility] Last Admin: 11/01/18 07:53 Dose: 81 mg Carvedilol (Coreg) 12.5 mg PO BID [facility] Last Admin: 11/01/18 07:55 Dose: 12.5 mg Clopidogrel Bisulfate (Plavix) 75 mg PO DAILY [facility] Last Admin: 11/01/18 07:53 Dose: 75 mg Guaifenesin/Codeine Phosphate (Robitussin Ac) 5 ml PO Q4H PRN PRN Reason: Cough Last Admin: 11/01/18 12:21 Dose: 5 ml Hydrochlorothiazide (Hydrochlorothiazide) 25 mg PO DAILY [facility] Last Admin: 11/01/18 07:53 Dose: 25 mg Sodium Chloride (Normal Saline) 1,000 mls @ 125 mls/hr IV ASDIRECTED [facility] Levofloxacin (Levaquin) 250 mg PO DAILY [facility] Melatonin (Melatonin) 3 mg PO BEDTIME [facility] Last Admin: 10/31/18 20:10 Dose: 3 mg Multivitamins/Minerals (Thera M Plus) 1 tab PO DAILY [facility] Last Admin: 11/01/18 07:55 Dose: 1 tab Non-Formulary Medication (Metformin Hcl [Metformin Hcl]) 850 mg PO BID [facility] Last Admin: 11/01/18 08:00 Dose: 850 mg Pantoprazole Sodium (Protonix) 40 mg PO ACBREAKFAST [facility] Last Admin: 11/01/18 07:53 Dose: 40 mg Prednisone (Prednisone) 40 mg PO WITHBREAKFAST [facility] Stop: 11/04/18 10:00 Last Admin: 11/01/18 10:00 Dose: 40 mg Sodium Chloride (Normal Saline) 10 ml FLUSH BID [facility] Last Admin: 11/01/18 10:00 Dose: 10 ml Valsartan (Diovan) 20 mg PO DAILY [facility] Last Admin: 11/01/18 07:53 Dose: 20 mg Discontinued Medications Albuterol/Ipratropium (Duoneb 3.0-0.5 Mg/3 Ml) Confirm Administered Dose 3 ml .ROUTE .STK-MED ONE Stop: 10/30/18 04:01 Last Admin: 10/30/18 05:04 Dose: Not Given Albuterol/Ipratropium (Duoneb 3.0-0.5 Mg/3 Ml) Confirm Administered Dose 3 ml .ROUTE .STK-MED ONE Stop: 10/30/18 09:58 Last Admin: 10/30/18 11:23 Dose: Not Given Albuterol/Ipratropium (Duoneb 3.0-0.5 Mg/3 Ml) Confirm Administered Dose 3 ml .ROUTE .STK-MED ONE Stop: 10/30/18 15:52 Last Admin: 10/30/18 16:14 Dose: Not Given Albuterol/Ipratropium (Duoneb 3.0-0.5 Mg/3 Ml) Confirm Administered Dose 3 ml .ROUTE .STK-MED ONE Stop: 10/31/18 03:07 Last Admin: 10/31/18 05:02 Dose: Not Given Albuterol/Ipratropium (Duoneb 3.0-0.5 Mg/3 Ml) Confirm Administered Dose 3 ml .ROUTE .STK-MED ONE Stop: 10/31/18 08:51 Last Admin: 10/31/18 09:57 Dose: Not Given Albuterol/Ipratropium (Duoneb 3.0-0.5 Mg/3 Ml) Confirm Administered Dose 3 ml .ROUTE .STK-MED ONE Stop: 10/31/18 15:41 Last Admin: 10/31/18 15:47 Dose: Not Given Albuterol/Ipratropium (Duoneb 3.0-0.5 Mg/3 Ml) Confirm Administered Dose 3 ml .ROUTE .STK-MED ONE Stop: 11/01/18 10:28 Last Admin: 11/01/18 10:49 Dose: Not Given Furosemide (Lasix) 20 mg IVPUSH ONETIME ONE Stop: 10/29/18 14:54 Last Admin: 10/29/18 16:19 Dose: 20 mg Furosemide (Lasix) 40 mg IVPUSH NOW ONE Stop: 10/30/18 08:33 Last Admin: 10/30/18 11:37 Dose: 40 mg Furosemide (Lasix) Confirm Administered Dose 40 mg .ROUTE .STK-MED ONE Stop: 10/30/18 11:31 Last Admin: 10/30/18 11:49 Dose: Not Given Ceftriaxone Sodium 1 gm/ (Sodium Chloride) 50 mls @ 200 mls/hr IV Q24H [facility] Levofloxacin/Dextrose 500 mg/ (Premix) 100 mls @ 100 mls/hr IV ASDIRECTED [facility] Stop: 10/29/18 23:59 Last Admin: 10/29/18 16:25 Dose: 100 mls/hr Levofloxacin/Dextrose (Levaquin In D5w 500 Mg/100 Ml) 100 mls @ 100 mls/hr IV DAILY [facility] Stop: 11/05/18 23:59 Last Admin: 11/01/18 07:22 Dose: Not Given Levofloxacin/Dextrose (Levaquin In D5w 500 Mg/100 Ml) Confirm Administered Dose 100 mls @ as directed IV .STK-MED ONE Stop: 10/29/18 15:57 Last Admin: 10/29/18 16:20 Dose: Not Given Sodium Chloride (Normal Saline) 500 mls @ 250 mls/hr IV BOLUS ONE Stop: 11/01/18 11:35 Last Admin: 11/01/18 10:00 Dose: 250 mls/hr Levofloxacin (Levaquin) 500 mg PO Q24H [facility] Stop: 11/05/18 23:59 Last Admin: 11/01/18 07:55 Dose: 500 mg Methylprednisolone Sodium Succinate (Solu-Medrol) Confirm Administered Dose 125 mg .ROUTE .STK-MED ONE Stop: 11/01/18 08:51 Last Admin: 11/01/18 10:00 Dose: Not Given Methylprednisolone Sodium Succinate (Solu-Medrol) 125 mg IVPUSH ONETIME ONE Stop: 11/01/18 09:01 Last Admin: 11/01/18 09:00 Dose: 125 mg Prednisone (Prednisone) Confirm Administered Dose 40 mg .ROUTE .STK-MED ONE Stop: 11/01/18 10:04 Last Admin: 11/01/18 10:25 Dose: Not Given Valsartan (Diovan) 40 mg PO DAILY [facility] Last Admin: 10/31/18 08:24 Dose: 40 mg - Exam Quality Assessment: Skin Breakdown. No: Supplemental Oxygen General: Alert, Oriented, Cooperative, No Acute Distress HEENT: Mucous Membr. Moist/[place] Neck: Supple, Trachea Midline Lungs: Decreased Breath Sounds, Rhonchi (middle lung hernandez) Cardiovascular: Regular Rate, Regular Rhythm, Other (little to no edema.) GI/Abdominal Exam: Normal Bowel Sounds, Soft Extremities: Normal Capillary Refill, Other (no edema noted, right lower leg tender with palpation) Skin: Warm, Dry Neurological: No New Focal Deficit Psy/Mental Status: Alert, Normal Affect, Normal Mood - Problem List & Annotations (1) Pneumonia SNOMED Code(s): 639163629 Code(s): J18.9 - PNEUMONIA, UNSPECIFIED ORGANISM Status: Acute Current Visit: Yes (2) Swelling of both lower extremities SNOMED Code(s): 487098333 Code(s): M79.89 - OTHER SPECIFIED SOFT TISSUE DISORDERS Status: Acute Current Visit: Yes (3) Diabetes mellitus SNOMED Code(s): 00558006 Code(s): E11.9 - TYPE 2 DIABETES MELLITUS WITHOUT COMPLICATIONS Status: Acute Current Visit: Yes - Problem List Review Problem List Initiated/Reviewed/Updated: Yes - My Orders Last 24 Hours: My Active Orders 10/31/18 20:00 Multivitamins w-Iron/Ca/FA/Min [Thera M Plus] 1 tab PO DAILY 11/01/18 07:50 FOLATE (FOLIC ACID), SERUM Routine VITAMIN B12 Routine 11/01/18 08:00 Sodium Chloride 0.9% [Normal Saline] 10 ml FLUSH BID Valsartan [Diovan] 20 mg PO DAILY 11/01/18 09:00 OT Evaluation and Treatment [CONS] Routine PT Evaluation and Treatment [CONS] Routine 11/01/18 09:39 Consult to Occupational Therapy [OT Evaluation and Treatment] [CONS] Routine Consult to Physical Therapy [PT Evaluation and Treatment] [CONS] Routine 11/01/18 09:45 Sodium Chloride 0.9% [Normal Saline] 1,000 ml IV ASDIRECTED 11/02/18 07:00 predniSONE 40 mg PO WITHBREAKFAST 11/02/18 08:00 BASIC METABOLIC PANEL,BMP [CHEM] Routine TSH ULTRASENSITIVE [CHEM] Routine levoFLOXacin [Levaquin] 250 mg PO DAILY - Plan Plan:: Pneumonia: CBC repeat and no leukocytosis noted. Continue with Levofloxacin daily. Swelling to lower extremities: Lasix 40 mg IV X 1 today. Daily weights. Repeat labs in am. 10-31-18 Consistent, persistent cough this am. WBC 6.2, Hgb 9.9 today. Potassium 5.4 and FBS 118. Pneumonia: Will change to Levaquin 500 mg PO daily. Continue with duo-neb qid. Cough medicine prn as ordered. Anemia: Stool for occult blood. Continue Protonix as ordered. Will start multivitamin daily. Swelling of lower legs is improved, will hold on Lasix IV today. Repeat labs in am. 11-01-2018 Cough is starting to loosen, increase in phlegm and vomit this am with tight cough. Possible asthma/COPD component to this cough. Will start Solu-Medrol 125mg IV today. Continue with Nebulizer qid and cough medicine as needed. Creatinine and BUN elevated today, probably related to diuretic and Levaquin. Will give Fluid bolus of 500 cc Nacl over 4 hours. Repeat BMP in am. Weakness: PT/OT consult today. Consider Swing bed admit tomorrow.
[2018-11-01] MEDS: Melatonin 3 MG Tab PO SCH (19:02)
[2018-11-02] MEDS: Albuterol/Ipratropium 3.0-0.5 MG/3 ML Neb Soln NEB SCH ×4 (03:31→19:14)
[2018-11-02] MEDS: Sodium Chloride 0.9% 20 ML SDV FLUSH SCH ×3 (03:32→20:35)
[2018-11-02] MEDS: Multivitamins with Iron/Calcium/Folic Acid/Minerals Tab PO SCH (07:14)
[2018-11-02] MEDS: Pantoprazole 40 MG Tab.CR PO SCH (07:14)
[2018-11-02] MEDS: predniSONE 20 MG Tab PO SCH (07:14)
[2018-11-02] MEDS: Aspirin 81 MG Tab.EC PO SCH (07:14)
[2018-11-02] MEDS: Hydrochlorothiazide 25 MG Tab PO SCH (07:14)
[2018-11-02] MEDS: Clopidogrel 75 MG Tab PO SCH (07:14)
[2018-11-02] MEDS: Levofloxacin 500 MG Tab PO SCH ×2 (07:15→07:26)
[2018-11-02] MEDS: Valsartan 40 MG Tab PO SCH (07:15)
[2018-11-02] MEDS: Apixaban 5 MG Tab PO SCH ×2 (07:15→20:34)
[2018-11-02] MEDS: Carvedilol 12.5 MG Tab PO SCH ×2 (07:16→20:33)
[2018-11-02] MEDS: METFORMIN HCL 850 MG PO SCH (07:24)
[2018-11-02] MEDS ORDERED: Levofloxacin 250 MG/10 ML Soln ML PO SCH (08:00)
[2018-11-02] MEDS ORDERED: Insulin Aspart 100 Units/ML 3 ML Pen SUBCUT SCH ×2 (08:53→17:00)
--- NOTE | 2018-11-02 10:45 | PCM.PN ---
- General Info Date of Service: 11/02/18 Admission Dx/Problem (Free Text): Admission Diagnosis/Problem Admission Diagnosis/Problem Pneumonia Subjective Update: Pt is resting in bed this am, states tired, but cough is much improved and finally getting some sleep. Functional Status: Reports: Pain Controlled, Urinating - Review of Systems General: Reports: Weakness, Fatigue HEENT: Reports: No Symptoms Pulmonary: Reports: Cough Cardiovascular: Reports: Dyspnea on Exertion Gastrointestinal: Reports: Decreased Appetite Genitourinary: Reports: No Symptoms Musculoskeletal: Reports: No Symptoms Skin: Reports: Dryness Neurological: Reports: No Symptoms Psychiatric: Reports: Other (saddened with decline in health/dying process) - Patient Data Vitals - Most Recent: Last Vital Signs Temp 97.8 F 11/01/18 20:00 Pulse 77 11/02/18 07:16 Resp 20 11/02/18 04:00 BP 133/77 11/02/18 07:16 Pulse Ox 93 L 11/01/18 22:59 Weight - Most Recent: 212 lb 6.4 oz I&O - Last 24 Hours: Intake & Output 11/01/18 11/02/18 11/02/18 22:59 06:59 14:59 Intake Total 400 300 Balance 400 300 Lab Results Last 24 Hours: Laboratory Results - last 24 hr 11/01/18 11/01/18 11/02/18 Range/Units 11:57 19:06 07:08 Sodium (136-145) mmol/L Potassium (3.5-5.1) mmol/L Chloride (98-107) mmol/L Carbon Dioxide (21.0-32.0) mmol/L Anion Gap (5.0-15.0) mmol/L BUN (8-26) mg/dL Creatinine (0.55-1.02) mg/dL Est Cr Clr Drug Dosing mL/min Estimated GFR (MDRD) (>60) MLS/MIN BUN/Creatinine Ratio (6-25) Glucose (74-100) mg/dL POC Glucose 189 H 233 H 167 H (74-110) mg/dL Calcium (8.5-10.1) mg/dL TSH, Ultra Sensitive (0.358-3.740) uIU/mL 11/02/18 Range/Units 07:10 Sodium 138 (136-145) mmol/L Potassium 5.5 H (3.5-5.1) mmol/L Chloride 102 (98-107) mmol/L Carbon Dioxide 28.9 (21.0-32.0) mmol/L Anion Gap 12.6 (5.0-15.0) mmol/L BUN 63 H* (8-26) mg/dL Creatinine 1.98 H (0.55-1.02) mg/dL Est Cr Clr Drug Dosing 21.31 mL/min Estimated GFR (MDRD) 24 L (>60) MLS/MIN BUN/Creatinine Ratio 31.8 H (6-25) Glucose 169 H (74-100) mg/dL POC Glucose (74-110) mg/dL Calcium 7.8 L (8.5-10.1) mg/dL TSH, Ultra Sensitive 9.132 H (0.358-3.740) uIU/mL Med Orders - Current: Current Medications Albuterol/Ipratropium (Duoneb 3.0-0.5 Mg/3 Ml) 3 ml NEB Q6H [facility] Last Admin: 11/02/18 07:13 Dose: 3 ml Apixaban (Eliquis) 5 mg PO BID [facility] Last Admin: 11/02/18 07:15 Dose: 5 mg Aspirin (Halfprin) 81 mg PO DAILY [facility] Last Admin: 11/02/18 07:14 Dose: 81 mg Carvedilol (Coreg) 12.5 mg PO BID [facility] Last Admin: 11/02/18 07:16 Dose: 12.5 mg Clopidogrel Bisulfate (Plavix) 75 mg PO DAILY [facility] Last Admin: 11/02/18 07:14 Dose: 75 mg Guaifenesin/Codeine Phosphate (Robitussin Ac) 5 ml PO Q4H PRN PRN Reason: Cough Last Admin: 11/01/18 19:01 Dose: 5 ml Hydrochlorothiazide (Hydrochlorothiazide) 25 mg PO DAILY [facility] Last Admin: 11/02/18 07:14 Dose: 25 mg Sodium Chloride (Normal Saline) 1,000 mls @ 125 mls/hr IV ASDIRECTED [facility] Last Admin: 11/01/18 15:35 Dose: 125 mls/hr Insulin Aspart (Novolog) 0 unit SUBCUT QIDACANDBED [facility]; Protocol Levofloxacin (Levaquin) 250 mg PO DAILY [facility] Last Admin: 11/02/18 07:26 Dose: 250 mg Melatonin (Melatonin) 3 mg PO BEDTIME [facility] Last Admin: 11/01/18 19:02 Dose: 3 mg Multivitamins/Minerals (Thera M Plus) 1 tab PO DAILY [facility] Last Admin: 11/02/18 07:14 Dose: 1 tab Pantoprazole Sodium (Protonix) 40 mg PO ACBREAKFAST [facility] Last Admin: 11/02/18 07:14 Dose: 40 mg Prednisone (Prednisone) 40 mg PO WITHBREAKFAST [facility] Stop: 11/04/18 10:00 Last Admin: 11/02/18 07:14 Dose: 40 mg Sodium Chloride (Normal Saline) 10 ml FLUSH BID [facility] Last Admin: 11/02/18 07:23 Dose: 10 ml Valsartan (Diovan) 20 mg PO DAILY [facility] Last Admin: 11/02/18 07:15 Dose: 20 mg Discontinued Medications Albuterol/Ipratropium (Duoneb 3.0-0.5 Mg/3 Ml) 3 ml NEB Q6H [facility] Last Admin: 11/01/18 19:02 Dose: 3 ml Albuterol/Ipratropium (Duoneb 3.0-0.5 Mg/3 Ml) Confirm Administered Dose 3 ml .ROUTE .STK-MED ONE Stop: 10/30/18 04:01 Last Admin: 10/30/18 05:04 Dose: Not Given Albuterol/Ipratropium (Duoneb 3.0-0.5 Mg/3 Ml) Confirm Administered Dose 3 ml .ROUTE .STK-MED ONE Stop: 10/30/18 09:58 Last Admin: 10/30/18 11:23 Dose: Not Given Albuterol/Ipratropium (Duoneb 3.0-0.5 Mg/3 Ml) Confirm Administered Dose 3 ml .ROUTE .STK-MED ONE Stop: 10/30/18 15:52 Last Admin: 10/30/18 16:14 Dose: Not Given Albuterol/Ipratropium (Duoneb 3.0-0.5 Mg/3 Ml) Confirm Administered Dose 3 ml .ROUTE .STK-MED ONE Stop: 10/31/18 03:07 Last Admin: 10/31/18 05:02 Dose: Not Given Albuterol/Ipratropium (Duoneb 3.0-0.5 Mg/3 Ml) Confirm Administered Dose 3 ml .ROUTE .STK-MED ONE Stop: 10/31/18 08:51 Last Admin: 10/31/18 09:57 Dose: Not Given Albuterol/Ipratropium (Duoneb 3.0-0.5 Mg/3 Ml) Confirm Administered Dose 3 ml .ROUTE .STK-MED ONE Stop: 10/31/18 15:41 Last Admin: 10/31/18 15:47 Dose: Not Given Albuterol/Ipratropium (Duoneb 3.0-0.5 Mg/3 Ml) Confirm Administered Dose 3 ml .ROUTE .STK-MED ONE Stop: 11/01/18 10:28 Last Admin: 11/01/18 10:49 Dose: Not Given Albuterol/Ipratropium (Duoneb 3.0-0.5 Mg/3 Ml) Confirm Administered Dose 3 ml .ROUTE .STK-MED ONE Stop: 11/01/18 15:12 Last Admin: 11/01/18 15:14 Dose: Not Given Albuterol/Ipratropium (Duoneb 3.0-0.5 Mg/3 Ml) Confirm Administered Dose 3 ml .ROUTE .STK-MED ONE Stop: 11/01/18 18:59 Last Admin: 11/01/18 19:03 Dose: Not Given Furosemide (Lasix) 20 mg IVPUSH ONETIME ONE Stop: 10/29/18 14:54 Last Admin: 10/29/18 16:19 Dose: 20 mg Furosemide (Lasix) 40 mg IVPUSH NOW ONE Stop: 10/30/18 08:33 Last Admin: 10/30/18 11:37 Dose: 40 mg Furosemide (Lasix) Confirm Administered Dose 40 mg .ROUTE .STK-MED ONE Stop: 10/30/18 11:31 Last Admin: 10/30/18 11:49 Dose: Not Given Ceftriaxone Sodium 1 gm/ (Sodium Chloride) 50 mls @ 200 mls/hr IV Q24H [facility] Levofloxacin/Dextrose 500 mg/ (Premix) 100 mls @ 100 mls/hr IV ASDIRECTED [facility] Stop: 10/29/18 23:59 Last Admin: 10/29/18 16:25 Dose: 100 mls/hr Levofloxacin/Dextrose (Levaquin In D5w 500 Mg/100 Ml) 100 mls @ 100 mls/hr IV DAILY [facility] Stop: 11/05/18 23:59 Last Admin: 11/01/18 07:22 Dose: Not Given Levofloxacin/Dextrose (Levaquin In D5w 500 Mg/100 Ml) Confirm Administered Dose 100 mls @ as directed IV .STK-MED ONE Stop: 10/29/18 15:57 Last Admin: 10/29/18 16:20 Dose: Not Given Sodium Chloride (Normal Saline) 500 mls @ 250 mls/hr IV BOLUS ONE Stop: 11/01/18 11:35 Last Admin: 11/01/18 10:00 Dose: 250 mls/hr Levofloxacin (Levaquin) 500 mg PO Q24H [facility] Stop: 11/05/18 23:59 Last Admin: 11/01/18 07:55 Dose: 500 mg Methylprednisolone Sodium Succinate (Solu-Medrol) Confirm Administered Dose 125 mg .ROUTE .STK-MED ONE Stop: 11/01/18 08:51 Last Admin: 11/01/18 10:00 Dose: Not Given Methylprednisolone Sodium Succinate (Solu-Medrol) 125 mg IVPUSH ONETIME ONE Stop: 11/01/18 09:01 Last Admin: 11/01/18 09:00 Dose: 125 mg Non-Formulary Medication (Metformin Hcl [Metformin Hcl]) 850 mg PO BID [facility] Last Admin: 11/02/18 07:24 Dose: 850 mg Prednisone (Prednisone) Confirm Administered Dose 40 mg .ROUTE .STK-MED ONE Stop: 11/01/18 10:04 Last Admin: 11/01/18 10:25 Dose: Not Given Valsartan (Diovan) 40 mg PO DAILY [facility] Last Admin: 10/31/18 08:24 Dose: 40 mg - Exam Quality Assessment: Supplemental Oxygen (Using oxygen at night) General: Alert, Oriented, Cooperative, No Acute Distress HEENT: Mucous Membr. Moist/[place] Neck: Supple. No: Lymphadenopathy Lungs: Other (cough is loosening and not vomitting with cough anymore) Cardiovascular: Regular Rate, Regular Rhythm GI/Abdominal Exam: Normal Bowel Sounds, Soft, Non-Tender Extremities: Normal Inspection, Normal Range of Motion, Normal Capillary Refill , Other (Slight edema to ankles) Skin: Warm, Dry - Problem List & Annotations (1) Pneumonia SNOMED Code(s): 053542371 Code(s): J18.9 - PNEUMONIA, UNSPECIFIED ORGANISM Status: Acute Current Visit: Yes (2) Swelling of both lower extremities SNOMED Code(s): 366366586 Code(s): M79.89 - OTHER SPECIFIED SOFT TISSUE DISORDERS Status: Acute Current Visit: Yes (3) Diabetes mellitus SNOMED Code(s): 79954607 Code(s): E11.9 - TYPE 2 DIABETES MELLITUS WITHOUT COMPLICATIONS Status: Acute Current Visit: Yes - Problem List Review Problem List Initiated/Reviewed/Updated: Yes - My Orders Last 24 Hours: My Active Orders 11/01/18 09:39 Consult to Occupational Therapy [OT Evaluation and Treatment] [CONS] Routine Consult to Physical Therapy [PT Evaluation and Treatment] [CONS] Routine 11/01/18 09:45 Sodium Chloride 0.9% [Normal Saline] 1,000 ml IV ASDIRECTED 11/01/18 22:59 RT Aerosol Therapy [RC] ASDIRECTED 11/02/18 00:01 Albuterol/Ipratropium [DuoNeb 3.0-0.5 MG/3 ML] 3 ml NEB Q6H 11/02/18 07:00 predniSONE 40 mg PO WITHBREAKFAST 11/02/18 08:00 levoFLOXacin [Levaquin] 250 mg PO DAILY 11/02/18 08:53 Insulin Aspart [NovoLOG] See Protocol SUBCUT QIDACANDBED 11/02/18 10:07 B-TYPE NATRIURETIC PEPTIDE,BNP [CHEM] Routine 11/02/18 10:31 THYROID PEROXIDASE (TPO) AB Routine 11/02/18 10:34 THYROXINE (T4) FREE, DIRECT, S Routine 11/03/18 08:00 BASIC METABOLIC PANEL,BMP [CHEM] Routine - Plan Plan:: Pneumonia: CBC repeat and no leukocytosis noted. Continue with Levofloxacin daily. Swelling to lower extremities: Lasix 40 mg IV X 1 today. Daily weights. Repeat labs in am. - Consistent, persistent cough this am. WBC 6.2, Hgb 9.9 today. Potassium 5.4 and FBS 118. Pneumonia: Will change to Levaquin 500 mg PO daily. Continue with duo-neb qid. Cough medicine prn as ordered. Anemia: Stool for occult blood. Continue Protonix as ordered. Will start multivitamin daily. Swelling of lower legs is improved, will hold on Lasix IV today. Repeat labs in am. 11-01-2018 Cough is starting to loosen, increase in phlegm and vomit this am with tight cough. Possible asthma/COPD component to this cough. Will start Solu-Medrol 125mg IV today. Continue with Nebulizer qid and cough medicine as needed. Creatinine and BUN elevated today, probably related to diuretic and Levaquin. Will give Fluid bolus of 500 cc Nacl over 4 hours. Repeat BMP in am. Weakness: PT/OT consult today. Consider Swing bed admit tomorrow. 11-01-18 Pneumonia: Cough is improving. Continue with Prednisone 40 mg PO daily for 3 days, then 30 mg PO daily for 3 days, then 20 mg daily for 3 days, then 10 mg daily for 3 days, then stop medication. Continue with daily Levaquin. Continue with Nebulizer/duo-neb qid and oxygen per N/C to keep SpO2.92%. Will check BNP today. Acute kidney insufficiency: Improved Creat today 1.98, BUN elevated 63. Will D /C Metformin and use sliding scale of Novolog insulin ac and hs. TSH of 9.132 today. Will check T4 and TPO antibody. Anemia: Recheck of Hgb and improvement noted, continue with Protonix.
[2018-11-02] MEDS: Melatonin 3 MG Tab PO SCH (20:33)
[2018-11-03] MEDS ORDERED: Acetaminophen 325 MG Tab PO PRN (00:10)
[2018-11-03] MEDS: Albuterol/Ipratropium 3.0-0.5 MG/3 ML Neb Soln NEB SCH ×6 (03:11→20:06)
[2018-11-03] MEDS ORDERED: Valsartan 40 MG Tab ONE (07:12)
[2018-11-03] MEDS: Levofloxacin 500 MG Tab PO SCH (07:23)
[2018-11-03] MEDS: Multivitamins with Iron/Calcium/Folic Acid/Minerals Tab PO SCH (07:28)
[2018-11-03] MEDS: Clopidogrel 75 MG Tab PO SCH (07:28)
[2018-11-03] MEDS: Aspirin 81 MG Tab.EC PO SCH (07:28)
[2018-11-03] MEDS: Hydrochlorothiazide 25 MG Tab PO SCH (07:28)
[2018-11-03] MEDS: Pantoprazole 40 MG Tab.CR PO SCH (07:28)
[2018-11-03] MEDS: Apixaban 5 MG Tab PO SCH ×2 (07:29→19:40)
[2018-11-03] MEDS: Valsartan 40 MG Tab PO SCH ×2 (07:29→10:31)
[2018-11-03] MEDS: Carvedilol 12.5 MG Tab PO SCH (07:29)
[2018-11-03] MEDS ORDERED: predniSONE 20 MG Tab PO SCH (08:00)
[2018-11-03] MEDS ORDERED: Valsartan 40 MG Tab PO SCH (08:00)
[2018-11-03] MEDS: Sodium Chloride 0.9% 20 ML SDV FLUSH SCH ×2 (10:30→20:00)
[2018-11-03] MEDS: Insulin Aspart 100 Units/ML 3 ML Pen SUBCUT SCH ×3 (11:01→17:37)
--- NOTE | 2018-11-03 11:08 | PCM.PN ---
- General Info Date of Service: 11/03/18 Admission Dx/Problem (Free Text): Admission Diagnosis/Problem Admission Diagnosis/Problem Pneumonia Subjective Update: Pt sleeping improved, cough is congested, but increase in loosening and does quiet at hs. Sad with last night, but thankful his suffering is over and is at peace now. Had abuot 70 years together. Functional Status: Reports: Pain Controlled, Urinating, Incentive Spirometry - Review of Systems General: Reports: Weakness, Fatigue HEENT: Reports: Glasses Pulmonary: Reports: Cough, Other (short of breath with cough and with speaking) Cardiovascular: Denies: Chest Pain, Palpitations Gastrointestinal: Reports: No Symptoms Skin: Reports: No Symptoms Neurological: Reports: No Symptoms Psychiatric: Reports: No Symptoms - Patient Data Vitals - Most Recent: Last Vital Signs Temp 97.2 F 11/03/18 03:16 Pulse 66 11/03/18 07:29 Resp 22 H 11/03/18 03:16 BP 112/67 11/03/18 07:29 Pulse Ox 97 11/03/18 03:16 Weight - Most Recent: 212 lb 6.4 oz I&O - Last 24 Hours: Intake & Output 11/02/18 11/03/18 11/03/18 22:59 06:59 14:59 Intake Total 620 120 Output Total 400 Balance 220 120 Lab Results Last 24 Hours: Laboratory Results - last 24 hr 11/01/18 11/01/18 11/02/18 Range/Units 07:50 07:50 07:10 Sodium (136-145) mmol/L Potassium (3.5-5.1) mmol/L Chloride (98-107) mmol/L Carbon Dioxide (21.0-32.0) mmol/L Anion Gap (5.0-15.0) mmol/L BUN (8-26) mg/dL Creatinine (0.55-1.02) mg/dL Est Cr Clr Drug Dosing mL/min Estimated GFR (MDRD) (>60) MLS/MIN BUN/Creatinine Ratio (6-25) Glucose (74-100) mg/dL POC Glucose (74-110) mg/dL Calcium (8.5-10.1) mg/dL B-Natriuretic Peptide 27136 H (0-450) pg/mL Vitamin B12 272 (232-1245) pg/mL Folate 14.3 (>3.0) ng/mL 11/02/18 11/02/18 11/03/18 Range/Units 12:03 16:17 07:46 Sodium (136-145) mmol/L Potassium (3.5-5.1) mmol/L Chloride (98-107) mmol/L Carbon Dioxide (21.0-32.0) mmol/L Anion Gap (5.0-15.0) mmol/L BUN (8-26) mg/dL Creatinine (0.55-1.02) mg/dL Est Cr Clr Drug Dosing mL/min Estimated GFR (MDRD) (>60) MLS/MIN BUN/Creatinine Ratio (6-25) Glucose (74-100) mg/dL POC Glucose 194 H 256 H 141 H (74-110) mg/dL Calcium (8.5-10.1) mg/dL B-Natriuretic Peptide (0-450) pg/mL Vitamin B12 (232-1245) pg/mL Folate (>3.0) ng/mL 11/03/18 Range/Units 08:45 Sodium 134 L (136-145) mmol/L Potassium 5.7 H (3.5-5.1) mmol/L Chloride 102 (98-107) mmol/L Carbon Dioxide 31.7 (21.0-32.0) mmol/L Anion Gap 6.0 (5.0-15.0) mmol/L BUN 66 H* (8-26) mg/dL Creatinine 1.66 H (0.55-1.02) mg/dL Est Cr Clr Drug Dosing 25.42 mL/min Estimated GFR (MDRD) 29 L (>60) MLS/MIN BUN/Creatinine Ratio 39.8 H (6-25) Glucose 142 H (74-100) mg/dL POC Glucose (74-110) mg/dL Calcium 7.9 L (8.5-10.1) mg/dL B-Natriuretic Peptide (0-450) pg/mL Vitamin B12 (232-1245) pg/mL Folate (>3.0) ng/mL Med Orders - Current: Current Medications Acetaminophen (Tylenol) 650 mg PO Q6H PRN PRN Reason: Pain Last Admin: 11/03/18 03:17 Dose: 650 mg Albuterol/Ipratropium (Duoneb 3.0-0.5 Mg/3 Ml) 3 ml NEB Q6H [facility] Last Admin: 11/03/18 07:27 Dose: 3 ml Apixaban (Eliquis) 5 mg PO BID [facility] Last Admin: 11/03/18 07:29 Dose: 5 mg Aspirin (Halfprin) 81 mg PO DAILY [facility] Last Admin: 11/03/18 07:28 Dose: 81 mg Bumetanide (Bumex) 0.5 mg PO BIDDIURETIC [facility] Carvedilol (Coreg) 12.5 mg PO BID [facility] Last Admin: 11/03/18 07:29 Dose: 12.5 mg Clopidogrel Bisulfate (Plavix) 75 mg PO DAILY [facility] Last Admin: 11/03/18 07:28 Dose: 75 mg Guaifenesin/Codeine Phosphate (Robitussin Ac) 5 ml PO Q4H PRN PRN Reason: Cough Last Admin: 11/01/18 19:01 Dose: 5 ml Sodium Chloride (Normal Saline) 1,000 mls @ 125 mls/hr IV ASDIRECTED [facility] Last Admin: 11/01/18 15:35 Dose: 125 mls/hr Insulin Aspart (Novolog) 0 unit SUBCUT 0800,1200,1700 [facility]; Protocol Last Admin: 11/03/18 11:01 Dose: Not Given Levothyroxine Sodium (Levothyroxine) 25 mcg PO ACBREAKFAST [facility] Melatonin (Melatonin) 3 mg PO BEDTIME [facility] Last Admin: 11/02/18 20:33 Dose: 3 mg Metolazone (Zaroxolyn) 5 mg PO BIDDIURETIC [facility] Multivitamins/Minerals (Thera M Plus) 1 tab PO DAILY [facility] Last Admin: 11/03/18 07:28 Dose: 1 tab Pantoprazole Sodium (Protonix) 40 mg PO ACBREAKFAST [facility] Last Admin: 11/03/18 07:28 Dose: 40 mg Prednisone (Prednisone) 40 mg PO 0800 [facility] Stop: 11/04/18 11:00 Last Admin: 11/03/18 07:27 Dose: 40 mg Prednisone (Prednisone) 30 mg PO WITHBREAKFAST [facility] Stop: 11/07/18 11:00 Sodium Chloride (Normal Saline) 10 ml FLUSH BID [facility] Last Admin: 11/02/18 20:35 Dose: 10 ml Discontinued Medications Albuterol/Ipratropium (Duoneb 3.0-0.5 Mg/3 Ml) 3 ml NEB Q6H [facility] Last Admin: 11/01/18 19:02 Dose: 3 ml Albuterol/Ipratropium (Duoneb 3.0-0.5 Mg/3 Ml) Confirm Administered Dose 3 ml .ROUTE .STK-MED ONE Stop: 10/30/18 04:01 Last Admin: 10/30/18 05:04 Dose: Not Given Albuterol/Ipratropium (Duoneb 3.0-0.5 Mg/3 Ml) Confirm Administered Dose 3 ml .ROUTE .STK-MED ONE Stop: 10/30/18 09:58 Last Admin: 10/30/18 11:23 Dose: Not Given Albuterol/Ipratropium (Duoneb 3.0-0.5 Mg/3 Ml) Confirm Administered Dose 3 ml .ROUTE .STK-MED ONE Stop: 10/30/18 15:52 Last Admin: 10/30/18 16:14 Dose: Not Given Albuterol/Ipratropium (Duoneb 3.0-0.5 Mg/3 Ml) Confirm Administered Dose 3 ml .ROUTE .STK-MED ONE Stop: 10/31/18 03:07 Last Admin: 10/31/18 05:02 Dose: Not Given Albuterol/Ipratropium (Duoneb 3.0-0.5 Mg/3 Ml) Confirm Administered Dose 3 ml .ROUTE .STK-MED ONE Stop: 10/31/18 08:51 Last Admin: 10/31/18 09:57 Dose: Not Given Albuterol/Ipratropium (Duoneb 3.0-0.5 Mg/3 Ml) Confirm Administered Dose 3 ml .ROUTE .STK-MED ONE Stop: 10/31/18 15:41 Last Admin: 10/31/18 15:47 Dose: Not Given Albuterol/Ipratropium (Duoneb 3.0-0.5 Mg/3 Ml) Confirm Administered Dose 3 ml .ROUTE .STK-MED ONE Stop: 11/01/18 10:28 Last Admin: 11/01/18 10:49 Dose: Not Given Albuterol/Ipratropium (Duoneb 3.0-0.5 Mg/3 Ml) Confirm Administered Dose 3 ml .ROUTE .STK-MED ONE Stop: 11/01/18 15:12 Last Admin: 11/01/18 15:14 Dose: Not Given Albuterol/Ipratropium (Duoneb 3.0-0.5 Mg/3 Ml) Confirm Administered Dose [address] ONE Stop: 11/01/18 18:59 Last Admin: 11/01/18 19:03 Dose: Not Given Furosemide (Lasix) 20 mg IVPUSH ONETIME ONE Stop: 10/29/18 14:54 Last Admin: 10/29/18 16:19 Dose: 20 mg Furosemide (Lasix) 40 mg IVPUSH NOW ONE Stop: 10/30/18 08:33 Last Admin: 10/30/18 11:37 Dose: 40 mg Furosemide (Lasix) Confirm Administered Dose [address] ONE Stop: 10/30/18 11:31 Last Admin: 10/30/18 11:49 Dose: Not Given Hydrochlorothiazide (Hydrochlorothiazide) 25 mg PO DAILY [facility] Last Admin: 11/03/18 07:28 Dose: 25 mg Ceftriaxone Sodium 1 gm/ (Sodium Chloride) 50 mls @ 200 mls/hr IV Q24H [facility] Levofloxacin/Dextrose 500 mg/ (Premix) 100 mls @ 100 mls/hr IV ASDIRECTED [facility] Stop: 10/29/18 23:59 Last Admin: 10/29/18 16:25 Dose: 100 mls/hr Levofloxacin/Dextrose (Levaquin In D5w 500 Mg/100 Ml) 100 mls @ 100 mls/hr IV DAILY [facility] Stop: 11/05/18 23:59 Last Admin: 11/01/18 07:22 Dose: Not Given Levofloxacin/Dextrose (Levaquin In D5w 500 Mg/100 Ml) Confirm Administered Dose 100 mls @ as directed IV .[facility] ONE Stop: 10/29/18 15:57 Last Admin: 10/29/18 16:20 Dose: Not Given Sodium Chloride (Normal Saline) 500 mls @ 250 mls/hr IV BOLUS ONE Stop: 11/01/18 11:35 Last Admin: 11/01/18 10:00 Dose: 250 mls/hr Insulin Aspart (Novolog) 0 unit SUBCUT QIDACANDBED [facility]; Protocol Last Admin: 11/02/18 13:07 Dose: 2 units Insulin Aspart (Novolog) 0 unit SUBCUT TIDAC [facility]; Protocol Last Admin: 11/02/18 17:45 Dose: 6 units Levofloxacin (Levaquin) 500 mg PO Q24H [facility] Stop: 11/05/18 23:59 Last Admin: 11/01/18 07:55 Dose: 500 mg Levofloxacin (Levaquin) 250 mg PO DAILY [facility] Last Admin: 11/03/18 07:23 Dose: 250 mg Methylprednisolone Sodium Succinate (Solu-Medrol) Confirm Administered Dose 125 mg .ROUTE .STK-MED ONE Stop: 11/01/18 08:51 Last Admin: 11/01/18 10:00 Dose: Not Given Methylprednisolone Sodium Succinate (Solu-Medrol) 125 mg IVPUSH ONETIME ONE Stop: 11/01/18 09:01 Last Admin: 11/01/18 09:00 Dose: 125 mg Non-Formulary Medication (Metformin Hcl [Metformin Hcl]) 850 mg PO BID [facility] Last Admin: 11/02/18 07:24 Dose: 850 mg Prednisone (Prednisone) 40 mg PO WITHBREAKFAST [facility] Stop: 11/04/18 10:00 Last Admin: 11/02/18 07:14 Dose: 40 mg Prednisone (Prednisone) Confirm Administered Dose 40 mg .ROUTE .STK-MED ONE Stop: 11/01/18 10:04 Last Admin: 11/01/18 10:25 Dose: Not Given Valsartan (Diovan) 40 mg PO DAILY [facility] Last Admin: 10/31/18 08:24 Dose: 40 mg Valsartan (Diovan) 20 mg PO DAILY [facility] Last Admin: 11/02/18 07:15 Dose: 20 mg Valsartan (Diovan) 10 mg PO DAILY [facility] Last Admin: 11/03/18 10:31 Dose: Not Given Valsartan (Diovan) Confirm Administered Dose 40 mg .ROUTE .STK-MED ONE Stop: 11/03/18 07:13 - Exam Quality Assessment: Supplemental Oxygen General: Alert, Oriented, Cooperative, No Acute Distress HEENT: Mucous Membr. Moist/[place] Neck: Supple, Trachea Midline Lungs: Crackles (bases), Rhonchi (rhonchii with coughing) Cardiovascular: Irregular Rhythm GI/Abdominal Exam: Normal Bowel Sounds, Soft, Non-Tender Extremities: Pedal Edema, Other (pretibial pitting edema, improved from admit) Neurological: Normal Speech Psy/Mental Status: Alert, Normal Affect, Normal Mood - Problem List & Annotations (1) Pneumonia SNOMED Code(s): 000037629 Code(s): J18.9 - PNEUMONIA, UNSPECIFIED ORGANISM Status: Acute Current Visit: Yes (2) Swelling of both lower extremities SNOMED Code(s): 397458517 Code(s): M79.89 - OTHER SPECIFIED SOFT TISSUE DISORDERS Status: Acute Current Visit: Yes (3) Diabetes mellitus SNOMED Code(s): 74733704 Code(s): E11.9 - TYPE 2 DIABETES MELLITUS WITHOUT COMPLICATIONS Status: Acute Current Visit: Yes (4) Hypothyroid SNOMED Code(s): 56012270 Code(s): E03.9 - HYPOTHYROIDISM, UNSPECIFIED Status: Acute Current Visit : Yes (5) Stage 3 chronic kidney disease SNOMED Code(s): 910506855 Code(s): N18.3 - CHRONIC KIDNEY DISEASE, STAGE 3 (MODERATE) Status: Acute Current Visit: Yes - Problem List Review Problem List Initiated/Reviewed/Updated: Yes - My Orders Last 24 Hours: My Active Orders 11/03/18 00:10 Acetaminophen [Tylenol] 650 mg PO Q6H PRN 11/03/18 08:00 Insulin Aspart [NovoLOG] 0 unit SUBCUT 0800,1200,1700 predniSONE 40 mg PO 0800 11/03/18 10:55 Levothyroxine 25 mcg PO ACBREAKFAST 11/03/18 15:30 metOLazone [Zaroxolyn] 5 mg PO BIDDIURETIC 11/03/18 16:00 Bumetanide [Bumex] 0.5 mg PO BIDDIURETIC 11/04/18 08:00 BASIC METABOLIC PANEL,BMP [CHEM] Routine 11/05/18 08:00 predniSONE 30 mg PO WITHBREAKFAST - Plan Plan:: Pneumonia: CBC repeat and no leukocytosis noted. Continue with Levofloxacin daily. Swelling to lower extremities: Lasix 40 mg IV X 1 today. Daily weights. Repeat labs in am. 10-31-18 Consistent, persistent cough this am. WBC 6.2, Hgb 9.9 today. Potassium 5.4 and FBS 118. Pneumonia: Will change to Levaquin 500 mg PO daily. Continue with duo-neb qid. Cough medicine prn as ordered. Anemia: Stool for occult blood. Continue Protonix as ordered. Will start multivitamin daily. Swelling of lower legs is improved, will hold on Lasix IV today. Repeat labs in am. 11-01-2018 Cough is starting to loosen, increase in phlegm and vomit this am with tight cough. Possible asthma/COPD component to this cough. Will start Solu-Medrol 125mg IV today. Continue with Nebulizer qid and cough medicine as needed. Creatinine and BUN elevated today, probably related to diuretic and Levaquin. Will give Fluid bolus of 500 cc Nacl over 4 hours. Repeat BMP in am. Weakness: PT/OT consult today. Consider Swing bed admit tomorrow. 11-02-18 Pneumonia: Cough is improving. Continue with Prednisone 40 mg PO daily for 3 days, then 30 mg PO daily for 3 days, then 20 mg daily for 3 days, then 10 mg daily for 3 days, then stop medication. Continue with daily Levaquin. Continue with Nebulizer/duo-neb qid and oxygen per N/C to keep SpO2.92%. Will check BNP today. Acute kidney insufficiency: Improved Creat today 1.98, BUN elevated 63. Will D /C Metformin and use sliding scale of Novolog insulin ac and hs. TSH of 9.132 today. Will check T4 and TPO antibody. Anemia: Recheck of Hgb and improvement noted, continue with Protonix. 11-03-2018 Pneumonia: Cough is persisting, but continues to improve daily. Continue with Prednisone taper. Continue with duo-neb and cough medicine. Acute kidney insufficiency, history of Stage 3 chronic kidney disease: Improved Creat of 1.66 today, BUN 66 today and Potassium of 5.7, Na 134. History of CVA and paroxysmal atrial fibrillation, heart failure: Will start Bumex and Zaroxylyn bid. Hypothyroid: Will start Levothyroxin 25 mcg PO daily. BMP in am.
[2018-11-03] MEDS: Levothyroxine 25 MCG Tab PO SCH (13:41)
[2018-11-03] MEDS: Metolazone 5 MG Tab PO SCH ×2 (15:51→17:29)
[2018-11-03] MEDS: Bumetanide 1 MG Tab PO SCH ×2 (15:52→17:29)
[2018-11-03] MEDS: Melatonin 3 MG Tab PO SCH (19:40)
[2018-11-03] MEDS ORDERED: Isosorbide Mononitrate 30 MG Tab.ER ONE (19:49)
[2018-11-03] MEDS: Sodium Chloride 0.9% 1,000 ML IV SCH (20:00)
[2018-11-03] MEDS ORDERED: Carvedilol 6.25 MG Tab PO SCH (20:00)
[2018-11-03] MEDS: Isosorbide Mononitrate 30 MG Tab.ER PO SCH (20:00)
[2018-11-04] MEDS: Albuterol/Ipratropium 3.0-0.5 MG/3 ML Neb Soln NEB SCH ×3 (00:52→11:51)
[2018-11-04] MEDS: Levothyroxine 25 MCG Tab PO SCH (06:00)
[2018-11-04] MEDS: Pantoprazole 40 MG Tab.CR PO SCH (06:00)
[2018-11-04] MEDS: Clopidogrel 75 MG Tab PO SCH (08:51)
[2018-11-04] MEDS: Multivitamins with Iron/Calcium/Folic Acid/Minerals Tab PO SCH (08:52)
[2018-11-04] MEDS: Apixaban 5 MG Tab PO SCH (08:52)
[2018-11-04] MEDS: Bumetanide 1 MG Tab PO SCH (08:52)
[2018-11-04] MEDS: Aspirin 81 MG Tab.EC PO SCH (08:52)
[2018-11-04] MEDS: Metolazone 5 MG Tab PO SCH (08:53)
[2018-11-04] MEDS: Isosorbide Mononitrate 30 MG Tab.ER PO SCH (08:54)
[2018-11-04] MEDS: Insulin Aspart 100 Units/ML 3 ML Pen SUBCUT SCH (09:00)
[2018-11-04] MEDS: Sodium Chloride 0.9% 20 ML SDV FLUSH SCH (09:25)
[2018-11-04] MEDS: Sodium Chloride 0.9% 1,000 ML IV SCH (09:39)
[2018-11-04] MEDS ORDERED: Sodium Polystyrene Sulfonate 15 GM/60 ML Susp 60 ML Bot ONE (10:43)
[2018-11-04] MEDS ORDERED: Sodium Polystyrene Sulfonate 15 GM/60 ML Susp 60 ML Bot PO ONE (10:43)
[2018-11-04] MEDS ORDERED: Insulin Aspart 100 Units/ML 3 ML Pen SUBCUT ONE (10:45)
--- NOTE | 2018-11-04 11:11 | PCM.PN ---
- General Info Date of Service: 11/04/18 Subjective Update: Pt care handed over to me last evening. According to staff patient has been feeling tired and exhausted. Has been coughing and been slightly short of breath at time. Today patient has been feeling better she claims, but still coughing. Afebrile. Poor oral intake. She has been on Iv NS at 75cc/hr. No chest pain. Pt has just lost her yesterday and has been emotionally drained too. Tearful. Functional Status: Reports: Pain Controlled, Urinating, Incentive Spirometry - Review of Systems General: Reports: Weakness, Malaise. Denies: Fever, Chills HEENT: Denies: Post Nasal Drip, Sinus Congestion, Rhinitis Pulmonary: Reports: Cough, Sputum. Denies: Shortness of Breath, Pleuritic Chest Pain, Wheezing Cardiovascular: Reports: Edema (pitting type). Denies: Chest Pain, Lightheadedness Gastrointestinal: Denies: Abdominal Pain, Nausea, Vomiting Genitourinary: Reports: Other (decreased urianry output.). Denies: Dysuria, Frequency, Burning Musculoskeletal: Denies: Joint Pain, Joint Swelling Skin: Denies: Bruising, Pruritis, Rash Neurological: Reports: Confusion, Weakness. Denies: Dizziness, Headache, Numbness, Tingling - Patient Data Vitals - Most Recent: Last Vital Signs Temp 98 F 11/04/18 04:00 Pulse 43 L 11/04/18 04:00 Resp 20 11/04/18 04:00 BP 130/67 11/04/18 08:54 Pulse Ox 96 11/04/18 04:00 Weight - Most Recent: 100.788 kg I&O - Last 24 Hours: Intake & Output 11/03/18 11/04/18 11/04/18 22:59 06:59 14:59 Intake Total 600 821 Output Total 300 200 Balance 300 621 Lab Results Last 24 Hours: Laboratory Results - last 24 hr 11/02/18 11/03/18 11/03/18 Range/Units 07:10 11:10 16:15 WBC (4.0-11.0) K/uL RBC (3.80-5.80) M/uL Hgb (11.5-16.5) g/dL Hct (37.0-47.0) % MCV (76-96) fL MCH (27.0-32.0) pg MCHC (31.0-35.0) g/dL RDW (11.0-16.0) % Plt Count (150-500) K/uL MPV (6.0-10.0) fL Neut % (Auto) (45.0-70.0) % Lymph % (Auto) (20.0-40.0) % [place] % (Auto) (3.0-10.0) % Eos % (Auto) (1.0-5.0) % Baso % (Auto) (0.0-0.5) % Neut # (Auto) (2.00-7.50) K/uL Lymph # (Auto) (1.50-4.00) K/uL [place] # (Auto) (0.20-0.80) K/uL Eos # (Auto) (0.04-0.40) K/uL Baso # (Auto) (0.02-0.10) K/uL Sodium (136-145) mmol/L Potassium (3.5-5.1) mmol/L Chloride (98-107) mmol/L Carbon Dioxide (21.0-32.0) mmol/L Anion Gap (5.0-15.0) mmol/L BUN (8-26) mg/dL Creatinine (0.55-1.02) mg/dL Est Cr Clr Drug Dosing mL/min Estimated GFR (MDRD) (>60) MLS/MIN BUN/Creatinine Ratio (6-25) Glucose (74-100) mg/dL POC Glucose 176 H 260 H (74-110) mg/dL Calcium Ionized Calcium (4.5-5.3) mg/dL Free T4 Direct 0.63 L (0.82-1.77) ng/dL 11/04/18 11/04/18 11/04/18 Range/Units 07:13 08:30 08:30 WBC 8.9 D (4.0-11.0) K/uL RBC 3.29 L (3.80-5.80) M/uL Hgb 10.1 L (11.5-16.5) g/dL Hct 33.6 L (37.0-47.0) % MCV 102 H (76-96) fL MCH 30.7 (27.0-32.0) pg MCHC 30.1 L (31.0-35.0) g/dL RDW 15.8 (11.0-16.0) % Plt Count 246 (150-500) K/uL MPV 10.2 H (6.0-10.0) fL Neut % (Auto) 83.3 H (45.0-70.0) % Lymph % (Auto) 8.1 L (20.0-40.0) % [place] % (Auto) 8.5 (3.0-10.0) % Eos % (Auto) 0.0 L (1.0-5.0) % Baso % (Auto) 0.1 (0.0-0.5) % Neut # (Auto) 7.41 (2.00-7.50) K/uL Lymph # (Auto) 0.72 L (1.50-4.00) K/uL [place] # (Auto) 0.76 (0.20-0.80) K/uL Eos # (Auto) 0.00 L (0.04-0.40) K/uL Baso # (Auto) 0.01 L (0.02-0.10) K/uL Sodium 128 L (136-145) mmol/L Potassium 7.4 H* D (3.5-5.1) mmol/L Chloride 97 L (98-107) mmol/L Carbon Dioxide 28.0 (21.0-32.0) mmol/L Anion Gap 10.4 (5.0-15.0) mmol/L BUN 102 H* D (8-26) mg/dL Creatinine 2.30 H D (0.55-1.02) mg/dL Est Cr Clr Drug Dosing 18.35 mL/min Estimated GFR (MDRD) 20 L (>60) MLS/MIN BUN/Creatinine Ratio 44.3 H (6-25) Glucose 290 H D (74-100) mg/dL POC Glucose 264 H (74-110) mg/dL Calcium Not Reportable Ionized Calcium 4.3 L (4.5-5.3) mg/dL Free T4 Direct (0.82-1.77) ng/dL Med Orders - Current: Current Medications Acetaminophen (Tylenol) 650 mg PO Q6H PRN PRN Reason: Pain Last Admin: 11/03/18 03:17 Dose: 650 mg Albuterol/Ipratropium (Duoneb 3.0-0.5 Mg/3 Ml) 3 ml NEB Q6H [facility] Last Admin: 11/04/18 05:54 Dose: 3 ml Apixaban (Eliquis) 5 mg PO BID [facility] Last Admin: 11/04/18 08:52 Dose: 5 mg Aspirin (Halfprin) 81 mg PO DAILY [facility] Last Admin: 11/04/18 08:52 Dose: 81 mg Bumetanide (Bumex) 0.5 mg PO BIDDIURETIC [facility] Last Admin: 11/04/18 08:52 Dose: 0.5 mg Clopidogrel Bisulfate (Plavix) 75 mg PO DAILY [facility] Last Admin: 11/04/18 08:51 Dose: 75 mg Guaifenesin/Codeine Phosphate (Robitussin Ac) 5 ml PO Q4H PRN PRN Reason: Cough Last Admin: 11/01/18 19:01 Dose: 5 ml Sodium Chloride (Normal Saline) 1,000 mls @ 75 mls/hr IV ASDIRECTED [facility] Last Admin: 11/04/18 09:39 Dose: 75 mls/hr Insulin Aspart (Novolog) 0 unit SUBCUT 0800,1200,1700 [facility]; Protocol Last Admin: 11/04/18 09:00 Dose: 6 units Isosorbide Mononitrate (Imdur) 30 mg PO DAILY [facility] Last Admin: 11/04/18 08:54 Dose: 30 mg Levothyroxine Sodium (Levothyroxine) 25 mcg PO ACBREAKFAST [facility] Last Admin: 11/04/18 06:00 Dose: 25 mcg Melatonin (Melatonin) 3 mg PO BEDTIME [facility] Last Admin: 11/03/18 19:40 Dose: 3 mg Metolazone (Zaroxolyn) 5 mg PO BID@0730,1530 [facility] Last Admin: 11/04/18 08:53 Dose: 5 mg Multivitamins/Minerals (Thera M Plus) 1 tab PO DAILY [facility] Last Admin: 11/04/18 08:52 Dose: 1 tab Pantoprazole Sodium (Protonix) 40 mg PO ACBREAKFAST [facility] Last Admin: 11/04/18 06:00 Dose: 40 mg Senna/Docusate Sodium (Senna Plus) 1 tab PO BID PRN PRN Reason: Constipation Sodium Chloride (Normal Saline) 10 ml FLUSH BID [facility] Last Admin: 11/04/18 09:25 Dose: Not Given Discontinued Medications Albuterol/Ipratropium (Duoneb 3.0-0.5 Mg/3 Ml) 3 ml NEB Q6H [facility] Last Admin: 11/01/18 19:02 Dose: 3 ml Albuterol/Ipratropium (Duoneb 3.0-0.5 Mg/3 Ml) Confirm Administered Dose 3 ml .ROUTE .STK-MED ONE Stop: 10/30/18 04:01 Last Admin: 10/30/18 05:04 Dose: Not Given Albuterol/Ipratropium (Duoneb 3.0-0.5 Mg/3 Ml) Confirm Administered Dose 3 ml .ROUTE .STK-MED ONE Stop: 10/30/18 09:58 Last Admin: 10/30/18 11:23 Dose: Not Given Albuterol/Ipratropium (Duoneb 3.0-0.5 Mg/3 Ml) Confirm Administered Dose 3 ml .ROUTE .STK-MED ONE Stop: 10/30/18 15:52 Last Admin: 10/30/18 16:14 Dose: Not Given Albuterol/Ipratropium (Duoneb 3.0-0.5 Mg/3 Ml) Confirm Administered Dose 3 ml .ROUTE .STK-MED ONE Stop: 10/31/18 03:07 Last Admin: 10/31/18 05:02 Dose: Not Given Albuterol/Ipratropium (Duoneb 3.0-0.5 Mg/3 Ml) Confirm Administered Dose 3 ml .ROUTE .STK-MED ONE Stop: 10/31/18 08:51 Last Admin: 10/31/18 09:57 Dose: Not Given Albuterol/Ipratropium (Duoneb 3.0-0.5 Mg/3 Ml) Confirm Administered Dose 3 ml .ROUTE .STK-MED ONE Stop: 10/31/18 15:41 Last Admin: 10/31/18 15:47 Dose: Not Given Albuterol/Ipratropium (Duoneb 3.0-0.5 Mg/3 Ml) Confirm Administered Dose 3 ml .ROUTE .STK-MED ONE Stop: 11/01/18 10:28 Last Admin: 11/01/18 10:49 Dose: Not Given Albuterol/Ipratropium (Duoneb 3.0-0.5 Mg/3 Ml) Confirm Administered Dose 3 ml .ROUTE .STK-MED ONE Stop: 11/01/18 15:12 Last Admin: 11/01/18 15:14 Dose: Not Given Albuterol/Ipratropium (Duoneb 3.0-0.5 Mg/3 Ml) Confirm Administered Dose 3 ml .ROUTE .STK-MED ONE Stop: 11/01/18 18:59 Last Admin: 11/01/18 19:03 Dose: Not Given Carvedilol (Coreg) 12.5 mg PO BID [facility] Last Admin: 11/03/18 07:29 Dose: 12.5 mg Carvedilol (Coreg) 6.25 mg PO BID [facility] Furosemide (Lasix) 20 mg IVPUSH ONETIME ONE Stop: 10/29/18 14:54 Last Admin: 10/29/18 16:19 Dose: 20 mg Furosemide (Lasix) 40 mg IVPUSH NOW ONE Stop: 10/30/18 08:33 Last Admin: 10/30/18 11:37 Dose: 40 mg Furosemide (Lasix) Confirm Administered Dose 40 mg .ROUTE .STK-MED ONE Stop: 10/30/18 11:31 Last Admin: 10/30/18 11:49 Dose: Not Given Hydrochlorothiazide (Hydrochlorothiazide) 25 mg PO DAILY [facility] Last Admin: 11/03/18 07:28 Dose: 25 mg Ceftriaxone Sodium 1 gm/ (Sodium Chloride) 50 mls @ 200 mls/hr IV Q24H [facility] Levofloxacin/Dextrose 500 mg/ (Premix) 100 mls @ 100 mls/hr IV ASDIRECTED [facility] Stop: 10/29/18 23:59 Last Admin: 10/29/18 16:25 Dose: 100 mls/hr Levofloxacin/Dextrose (Levaquin In D5w 500 Mg/100 Ml) 100 mls @ 100 mls/hr IV DAILY [facility] Stop: 11/05/18 23:59 Last Admin: 11/01/18 07:22 Dose: Not Given Levofloxacin/Dextrose (Levaquin In D5w 500 Mg/100 Ml) Confirm Administered Dose 100 mls @ as directed IV .STK-MED ONE Stop: 10/29/18 15:57 Last Admin: 10/29/18 16:20 Dose: Not Given Sodium Chloride (Normal Saline) 1,000 mls @ 125 mls/hr IV ASDIRECTED [facility] Last Admin: 11/01/18 15:35 Dose: 125 mls/hr Sodium Chloride (Normal Saline) 500 mls @ 250 mls/hr IV BOLUS ONE Stop: 11/01/18 11:35 Last Admin: 11/01/18 10:00 Dose: 250 mls/hr Insulin Aspart (Novolog) 0 unit SUBCUT QIDACANDBED [facility]; Protocol Last Admin: 11/02/18 13:07 Dose: 2 units Insulin Aspart (Novolog) 0 unit SUBCUT TIDAC [facility]; Protocol Last Admin: 11/02/18 17:45 Dose: 6 units Insulin Aspart (Novolog) 8 unit SUBCUT ONETIME ONE Stop: 11/04/18 10:46 Isosorbide Mononitrate (Imdur) Confirm Administered Dose 30 mg .ROUTE .STK-MED ONE Stop: 11/03/18 19:50 Last Admin: 11/03/18 20:41 Dose: Not Given Levofloxacin (Levaquin) 500 mg PO Q24H [facility] Stop: 11/05/18 23:59 Last Admin: 11/01/18 07:55 Dose: 500 mg Levofloxacin (Levaquin) 250 mg PO DAILY [facility] Last Admin: 11/03/18 07:23 Dose: 250 mg Methylprednisolone Sodium Succinate (Solu-Medrol) Confirm Administered Dose 125 mg .ROUTE .STK-MED ONE Stop: 11/01/18 08:51 Last Admin: 11/01/18 10:00 Dose: Not Given Methylprednisolone Sodium Succinate (Solu-Medrol) 125 mg IVPUSH ONETIME ONE Stop: 11/01/18 09:01 Last Admin: 11/01/18 09:00 Dose: 125 mg Non-Formulary Medication (Metformin Hcl [Metformin Hcl]) 850 mg PO BID [facility] Last Admin: 11/02/18 07:24 Dose: 850 mg Prednisone (Prednisone) 40 mg PO WITHBREAKFAST [facility] Stop: 11/04/18 10:00 Last Admin: 11/02/18 07:14 Dose: 40 mg Prednisone (Prednisone) Confirm Administered Dose 40 mg .ROUTE .STK-MED ONE Stop: 11/01/18 10:04 Last Admin: 11/01/18 10:25 Dose: Not Given Prednisone (Prednisone) 40 mg PO 0800 [facility] Stop: 11/04/18 11:00 Last Admin: 11/03/18 07:27 Dose: 40 mg Prednisone (Prednisone) 30 mg PO WITHBREAKFAST [facility] Stop: 11/07/18 11:00 Senna/Docusate Sodium (Senna Plus) Confirm Administered Dose 1 tab .ROUTE .STK- MED ONE Stop: 11/03/18 18:17 Last Admin: 11/03/18 18:34 Dose: 1 tab Sodium Polystyrene Sulfonate (Kayexalate) 15 gm PO ONETIME ONE Stop: 11/04/18 10:44 Sodium Polystyrene Sulfonate (Kayexalate) Confirm Administered Dose 15 gm .ROUTE .STK-MED ONE Stop: 11/04/18 10:44 Valsartan (Diovan) 40 mg PO DAILY [facility] Last Admin: 10/31/18 08:24 Dose: 40 mg Valsartan (Diovan) 20 mg PO DAILY [facility] Last Admin: 11/02/18 07:15 Dose: 20 mg Valsartan (Diovan) 10 mg PO DAILY [facility] Last Admin: 11/03/18 10:31 Dose: Not Given Valsartan (Diovan) Confirm Administered Dose 40 mg .ROUTE .STK-MED ONE Stop: 11/03/18 07:13 Last Admin: 11/03/18 18:54 Dose: Not Given - Exam General: Alert, Oriented, Cooperative HEENT: Pupils Equal, Pupils Reactive Neck: Supple, Trachea Midline. No: Lymphadenopathy, Carotid Bruit Lungs: Decreased Breath Sounds (absent breath sound in the base, left wrose then right), Crackles (expiratory crackles heard in the right mid posterior chest. ) Cardiovascular: Bradycardia GI/Abdominal Exam: Normal Bowel Sounds, Soft, Non-Tender, No Organomegaly, No Distention, No Abnormal Bruit, No Mass, Pelvis Stable Extremities: Normal Inspection, Normal Range of Motion, Non-Tender, Normal Capillary Refill, Pedal Edema (pitting edema 3+ B/L) Skin: Warm Neurological: No New Focal Deficit Psy/Mental Status: Alert, Depressed (due to hear husbands yesterday) EKG INTERPRETATION EKG Date: 11/04/18 P-Wave: Absent QRS: Wide ST-T: Normal EKG Interpretation Comments: Junctional rhythm - Problem List & Annotations (1) Diabetes mellitus SNOMED Code(s): 56890747 Code(s): E11.9 - TYPE 2 DIABETES MELLITUS WITHOUT COMPLICATIONS Status: Acute Current Visit: Yes (2) Hypothyroid SNOMED Code(s): 99446442 Code(s): E03.9 - HYPOTHYROIDISM, UNSPECIFIED Status: Acute Current Visit : Yes (3) Pneumonia SNOMED Code(s): 579784362 Code(s): J18.9 - PNEUMONIA, UNSPECIFIED ORGANISM Status: Acute Current Visit: Yes (4) Stage 3 chronic kidney disease SNOMED Code(s): 760904966 Code(s): N18.3 - CHRONIC KIDNEY DISEASE, STAGE 3 (MODERATE) Status: Acute Current Visit: Yes - Problem List Review Problem List Initiated/Reviewed/Updated: Yes - My Orders Last 24 Hours: My Active Orders 11/03/18 19:28 Sodium Chloride 0.9% [Normal Saline] 1,000 ml IV ASDIRECTED 11/03/18 19:30 Telemetry Monitoring [Cardiac Monitoring] [RC] 20,08 Isosorbide Mononitrate [Imdur] 30 mg PO DAILY 11/03/18 19:32 Code Status [Resuscitation Status] Routine 11/03/18 20:35 EKG Documentation Completion [RC] ASDIRECTED 11/04/18 10:36 Chest 1V Frontal [CR] Routine 11/04/18 10:46 TROPONIN I [CHEM] Stat - Assessment Assessment:: Left lower lobe pneumonia Moderate left pleural effusion with small right pleural effusion CHF with hypotension resolved with bradycardia Renal failure with hyper kalemia - Plan Plan:: Pneumonia: CBC repeat and no leukocytosis noted. Continue with Levofloxacin daily. Swelling to lower extremities: Lasix 40 mg IV X 1 today. Daily weights. Repeat labs in am. 10-31-18 Consistent, persistent cough this am. WBC 6.2, Hgb 9.9 today. Potassium 5.4 and FBS 118. Pneumonia: Will change to Levaquin 500 mg PO daily. Continue with duo-neb qid. Cough medicine prn as ordered. Anemia: Stool for occult blood. Continue Protonix as ordered. Will start multivitamin daily. Swelling of lower legs is improved, will hold on Lasix IV today. Repeat labs in am. 11-01-2018 Cough is starting to loosen, increase in phlegm and vomit this am with tight cough. Possible asthma/COPD component to this cough. Will start Solu-Medrol 125mg IV today. Continue with Nebulizer qid and cough medicine as needed. Creatinine and BUN elevated today, probably related to diuretic and Levaquin. Will give Fluid bolus of 500 cc Nacl over 4 hours. Repeat BMP in am. Weakness: PT/OT consult today. Consider Swing bed admit tomorrow. 11-02-18 Pneumonia: Cough is improving. Continue with Prednisone 40 mg PO daily for 3 days, then 30 mg PO daily for 3 days, then 20 mg daily for 3 days, then 10 mg daily for 3 days, then stop medication. Continue with daily Levaquin. Continue with Nebulizer/duo-neb qid and oxygen per N/C to keep SpO2.92%. Will check BNP today. Acute kidney insufficiency: Improved Creat today 1.98, BUN elevated 63. Will D /C Metformin and use sliding scale of Novolog insulin ac and hs. TSH of 9.132 today. Will check T4 and TPO antibody. Anemia: Recheck of Hgb and improvement noted, continue with Protonix. 11-03-2018 Pneumonia: Cough is persisting, but continues to improve daily. Continue with Prednisone taper. Continue with duo-neb and cough medicine. Acute kidney insufficiency, history of Stage 3 chronic kidney disease: Improved Creat of 1.66 today, BUN 66 today and Potassium of 5.7, Na 134. History of CVA and paroxysmal atrial fibrillation, heart failure: Will start Bumex and Zaroxylyn bid. Hypothyroid: Will start Levothyroxin 25 mcg PO daily. BMP in am. 12/05/18 Pt care transferred to [place] last evening. Apparently patient has been slightly hypotensive and her blood pressure are running systolic 90-110mmhg and diastolic around 40-50mmhg. Has not been feeding well. Also she has been bradycardiac with heart rates in 40s for past 24 hrs. Pt has been extremely exhausted and tired. Her Coreg 12.5mg BID was stopped due to her severe bradycardia. Her creat was 1.6 with BUN of 6.5. Pt was started on Imdur 30mg PO last evening for her chronic CHF. Pt's Xyloxylin and Bumex was held due to her low blood pressure and Also started on IV NS at 75cc/hr. Today morning, pt has been coughing and exhausted and feels tired. Pneumonia: There is absent breath sound in the base B/l , left worse then right , also there are expiratory crackles in the right base. Good air entery anteriorly. Her CBC today is normal. Considering the change in her lung hernandez, I did repeat chest X-ray portable., which does show worsening of the left lower lobe pneumonia with moderate pleural effusion and a small right pleural effusion. Also patient has been coughing and having minimal clear sputum. I did order normal saline nebs to help with expectoration. Renal Failure: Pt's creat is up from 1.6 to 2.3 today. Her BUN is up from 65 to 102. Her potassium is up from 5.7 to 7.4 today. Pt appears to be in acuter renal failure her base line creat on admission was 1.2 and has progressively gone up. BUN has followed the same pattern. Pt has been on Iv NS at 75 cc/hr considering her Chronic CHF ( to prevent fluid overload). Her Potassium is 7.4 today , her EKG does not show any tall T waves. She did receive Kayexalate 15gm orally now and also sub cutaneous insulin 8 units. CHF with mil elevation of troponin: Patient has been hypotensive since yesterday. also she has been bradycardia since yesterday. her heart rate is around 40-50 beats per minute. Her EKG shows junction rhythm. I did stop her Coreg yesterday evening for her bradycardia after taking over patient care and placed her on telemetry. Her heart rate has remained in 40s all night and now. Her BNP on 11/02/18 was 15K, apparently have not been able to get BNP done today due to technical problem. Also I did repeat EKG today which is in Junctional rhythm and her rate is still n 40s. Did get troponin which is elevated at 0.08. Her last heart rate is 50/min and her BP has improved to 130/67mmhg. Apparently patient has had worsening of her pneumonia with new moderate left pleural effusion with small right pleural effusion. Also she has developed renal failure with hypokalemia, with CHF and bradycardia. I did call [facility] and apparently they cannot accept patient as they do not have Nephrology over the weekends. I did call [facility] and have not heard back from them in past 20 minutes. I did call [facility] and discuss patient with the hospitalist substation superintendent and discussed patient with her. did agrees to accept patient. Pt is on Iv fluid NS at 75cc/ hr for transfer. Further care per Dr. Thomas.
--- NOTE | 2018-11-04 12:53 | PCM.DCSUM1 ---
Discharge Summary - Hospital Course Free Text/Narrative:: Pneumonia: CBC repeat and no leukocytosis noted. Continue with Levofloxacin daily. Swelling to lower extremities: Lasix 40 mg IV X 1 today. Daily weights. Repeat labs in am. 10-31-18 Consistent, persistent cough this am. WBC 6.2, Hgb 9.9 today. Potassium 5.4 and FBS 118. Pneumonia: Will change to Levaquin 500 mg PO daily. Continue with duo-neb qid. Cough medicine prn as ordered. Anemia: Stool for occult blood. Continue Protonix as ordered. Will start multivitamin daily. Swelling of lower legs is improved, will hold on Lasix IV today. Repeat labs in am. 11-01-2018 Cough is starting to loosen, increase in phlegm and vomit this am with tight cough. Possible asthma/COPD component to this cough. Will start Solu-Medrol 125mg IV today. Continue with Nebulizer qid and cough medicine as needed. Creatinine and BUN elevated today, probably related to diuretic and Levaquin. Will give Fluid bolus of 500 cc Nacl over 4 hours. Repeat BMP in am. Weakness: PT/OT consult today. Consider Swing bed admit tomorrow. 11-02-18 Pneumonia: Cough is improving. Continue with Prednisone 40 mg PO daily for 3 days, then 30 mg PO daily for 3 days, then 20 mg daily for 3 days, then 10 mg daily for 3 days, then stop medication. Continue with daily Levaquin. Continue with Nebulizer/duo-neb qid and oxygen per N/C to keep SpO2.92%. Will check BNP today. Acute kidney insufficiency: Improved Creat today 1.98, BUN elevated 63. Will D /C Metformin and use sliding scale of Novolog insulin ac and hs. TSH of 9.132 today. Will check T4 and TPO antibody. Anemia: Recheck of Hgb and improvement noted, continue with Protonix. 11-03-2018 Pneumonia: Cough is persisting, but continues to improve daily. Continue with Prednisone taper. Continue with duo-neb and cough medicine. Acute kidney insufficiency, history of Stage 3 chronic kidney disease: Improved Creat of 1.66 today, BUN 66 today and Potassium of 5.7, Na 134. History of CVA and paroxysmal atrial fibrillation, heart failure: Will start Bumex and Zaroxylyn bid. Hypothyroid: Will start Levothyroxin 25 mcg PO daily. BMP in am. 12/05/18 Pt care transferred to [facility] last evening. Apparently patient has been slightly hypotensive and her blood pressure are running systolic 90-110mmhg and diastolic around 40-50mmhg. Has not been feeding well. Also she has been bradycardiac with heart rates in 40s for past 24 hrs. Pt has been extremely exhausted and tired. Her Coreg 12.5mg BID was stopped due to her severe bradycardia. Her creat was 1.6 with BUN of 6.5. Pt was started on Imdur 30mg PO last evening for her chronic CHF. Pt's Xyloxylin and Bumex was held due to her low blood pressure and Also started on IV NS at 75cc/hr. Today morning, pt has been coughing and exhausted and feels tired. Pneumonia: There is absent breath sound in the base B/l , left worse then right , also there are expiratory crackles in the right base. Good air entery anteriorly. Her CBC today is normal. Considering the change in her lung hernandez, I did repeat chest X-ray portable., which does show worsening of the left lower lobe pneumonia with moderate pleural effusion and a small right pleural effusion. Also patient has been coughing and having minimal clear sputum. I did order normal saline nebs to help with expectoration. Renal Failure: Pt's creat is up from 1.6 to 2.3 today. Her BUN is up from 65 to 102. Her potassium is up from 5.7 to 7.4 today. Pt appears to be in acuter renal failure her base line creat on admission was 1.2 and has progressively gone up. BUN has followed the same pattern. Pt has been on Iv NS at 75 cc/hr considering her Chronic CHF ( to prevent fluid overload). Her Potassium is 7.4 today , her EKG does not show any tall T waves. She did receive Kayexalate 15gm orally now and also sub cutaneous insulin 8 units. CHF with mil elevation of troponin: Patient has been hypotensive since yesterday. also she has been bradycardia since yesterday. her heart rate is around 40-50 beats per minute. Her EKG shows junction rhythm. I did stop her Coreg yesterday evening for her bradycardia after taking over patient care and placed her on telemetry. Her heart rate has remained in 40s all night and now. Her BNP on 8/23/19 was 15K, apparently have not been able to get BNP done today due to technical problem. Also I did repeat EKG today which is in Junctional rhythm and her rate is still n 40s. Did get troponin which is elevated at 0.08. Her last heart rate is 50/min and her BP has improved to 130/67mmhg. Apparently patient has had worsening of her pneumonia with new moderate left pleural effusion with small right pleural effusion. Also she has developed renal failure with hypokalemia, with CHF and bradycardia. I did call [facility] and apparently they cannot accept patient as they do not have Nephrology over the weekends. I did call [facility] and have not heard back from them in past 20 minutes. I did call [facility] and discuss patient with the hospitalist field control inspector and discussed patient with her. did agrees to accept patient. Pt is on Iv fluid NS at 75cc/ hr for transfer. Further care per Dr. Thomas. Brief History: Pt was admitted to [facility] on 10/29/2018 with diagnosis of left lower lobe pneumonia for IV antibiotics. Diagnosis: Stroke: No - Discharge Data Discharge Date: 11/04/18 Discharge Disposition: DC/Tfer to Acute Hospital 02 Condition: Good - Discharge Diagnosis/Problem(s) (1) Diabetes mellitus SNOMED Code(s): 18972682 ICD Code: E11.9 - TYPE 2 DIABETES MELLITUS WITHOUT COMPLICATIONS Status: Acute Current Visit: Yes (2) Hypothyroid SNOMED Code(s): 11985760 ICD Code: E03.9 - HYPOTHYROIDISM, UNSPECIFIED Status: Acute Current Visit : Yes (3) Pneumonia SNOMED Code(s): 419704022 ICD Code: J18.9 - PNEUMONIA, UNSPECIFIED ORGANISM Status: Acute Current Visit: Yes (4) Stage 3 chronic kidney disease SNOMED Code(s): 439623964 ICD Code: N18.3 - CHRONIC KIDNEY DISEASE, STAGE 3 (MODERATE) Status: Acute Current Visit: Yes - Patient Summary/Data Consults: Consultations 11/01/18 09:00 OT Evaluation and Treatment [CONS] Routine Please Evaluate and Treat. OT Reason for Consult: Strengthening Pending Discharge: Yes Discharge Disposition: Home This query below is only for informational purposes and is not editable. Admission Diagnosis/Problem: Pneumonia PT Evaluation and Treatment [CONS] Routine Please Evaluate and Treat. PT Reason for Consult: Strengthening Pending Discharge: Yes Discharge Disposition: Home This query below is only for informational purposes and is not editable. Admission Diagnosis/Problem: Pneumonia 11/01/18 09:39 Consult to Occupational Therapy [OT Evaluation and Treatment] [CONS] Routine Please Evaluate and Treat. OT Reason for Consult: Strengthening This query below is only for informational purposes and is not editable. Admission Diagnosis/Problem: Pneumonia Consult to Physical Therapy [PT Evaluation and Treatment] [CONS] Routine Please Evaluate and Treat. PT Reason for Consult: Strengthening This query below is only for informational purposes and is not editable. Admission Diagnosis/Problem: Pneumonia - Patient Instructions Diet: Diabetic Diet Fluid Restriction: 1000 mL Activity: As Tolerated - Discharge Plan *PRESCRIPTION DRUG MONITORING PROGRAM REVIEWED*: Not Applicable *COPY OF PRESCRIPTION DRUG MONITORING REPORT IN PATIENT UTE: Not Applicable Home Medications: Home Meds glipiZIDE [Glipizide Xl] 10 mg PO DAILY 06/20/14 [History] metFORMIN HCl [Metformin HCl] 850 mg PO BID 06/20/14 [History] Apixaban [Eliquis] 5 mg PO BID 12/25/15 [History] Aspirin [Sedrick Chewable] 81 mg PO DAILY 12/25/15 [History] Carvedilol 12.5 mg PO BID 12/25/15 [History] Clopidogrel [Plavix] 75 mg PO DAILY 12/25/15 [History] Hydrochlorothiazide 25 mg PO DAILY 12/25/15 [History] Nitroglycerin [IJP: Nitroglycerin] 0.4 mg SL ASDIRECTED 12/25/15 [History] Pantoprazole Sodium 40 mg PO ACBREAKFAST 12/25/15 [History] atorvaSTATin Calcium [Atorvastatin Calcium] 40 mg PO QPM 12/25/15 [History] Losartan [Cozaar] 25 mg PO DAILY 10/29/18 [History] Oxygen Therapy Mode: Room Air - Discharge Summary/Plan Comment DC Time >30 min.: Yes Discharge Summary/Plan Comment: Pt transferred to [facility] for further care under care of . - General Info Subjective Update: Pt has been feeling exhausted and tired. Has been having productive cough with clear sputum. Has remained afebrile over the past 24 hrs. Functional Status: Reports: Tolerating Diet, Urinating, Incentive Spirometry - Review of Systems General: Reports: Weakness, Malaise, Appetite (decreased). Denies: Fever HEENT: Denies: Headaches, Sinus Congestion Pulmonary: Reports: Cough, Sputum. Denies: Shortness of Breath, Hemoptysis, Wheezing Cardiovascular: Reports: Edema (pedal edema B/l), Lightheadedness. Denies: Chest Pain, Palpitations Gastrointestinal: Denies: Abdominal Pain, Nausea, Vomiting Genitourinary: Denies: Frequency, Urgency Musculoskeletal: Denies: Joint Pain, Joint Swelling Skin: Denies: Bruising, Pruritis, Rash - Patient Data Vitals - Most Recent: Last Vital Signs Temp 97.7 F 11/04/18 08:00 Pulse 50 L 11/04/18 08:00 Resp 16 11/04/18 08:00 BP 130/67 11/04/18 08:54 Pulse Ox 92 L 11/04/18 08:00 Weight - Most Recent: 100.788 kg I&O - Last 24 hours: Intake & Output 11/03/18 11/04/18 11/04/18 22:59 06:59 14:59 Intake Total 600 821 300 Output Total 300 200 Balance 300 621 300 Lab Results - Last 24 hrs: Laboratory Results - last 24 hr 11/02/18 11/03/18 11/04/18 Range/Units 07:10 16:15 07:13 WBC (4.0-11.0) K/uL RBC (3.80-5.80) M/uL Hgb (11.5-16.5) g/dL Hct (37.0-47.0) % MCV (76-96) fL MCH (27.0-32.0) pg MCHC (31.0-35.0) g/dL RDW (11.0-16.0) % Plt Count (150-500) K/uL MPV (6.0-10.0) fL Neut % (Auto) (45.0-70.0) % Lymph % (Auto) (20.0-40.0) % Brule % (Auto) (3.0-10.0) % Eos % (Auto) (1.0-5.0) % Baso % (Auto) (0.0-0.5) % Neut # (Auto) (2.00-7.50) K/uL Lymph # (Auto) (1.50-4.00) K/uL Brule # (Auto) (0.20-0.80) K/uL Eos # (Auto) (0.04-0.40) K/uL Baso # (Auto) (0.02-0.10) K/uL Sodium (136-145) mmol/L Potassium (3.5-5.1) mmol/L Chloride (98-107) mmol/L Carbon Dioxide (21.0-32.0) mmol/L Anion Gap (5.0-15.0) mmol/L BUN (8-26) mg/dL Creatinine (0.55-1.02) mg/dL Est Cr Clr Drug Dosing mL/min Estimated GFR (MDRD) (>60) MLS/MIN BUN/Creatinine Ratio (6-25) Glucose (74-100) mg/dL POC Glucose 260 H 264 H (74-110) mg/dL Calcium Ionized Calcium (4.5-5.3) mg/dL Troponin I (0.000-0.060) ng/mL Free T4 Direct 0.63 L (0.82-1.77) ng/dL 11/04/18 11/04/18 11/04/18 Range/Units 08:30 08:30 10:45 WBC 8.9 D (4.0-11.0) K/uL RBC 3.29 L (3.80-5.80) M/uL Hgb 10.1 L (11.5-16.5) g/dL Hct 33.6 L (37.0-47.0) % MCV 102 H (76-96) fL MCH 30.7 (27.0-32.0) pg MCHC 30.1 L (31.0-35.0) g/dL RDW 15.8 (11.0-16.0) % Plt Count 246 (150-500) K/uL MPV 10.2 H (6.0-10.0) fL Neut % (Auto) 83.3 H (45.0-70.0) % Lymph % (Auto) 8.1 L (20.0-40.0) % Brule % (Auto) 8.5 (3.0-10.0) % Eos % (Auto) 0.0 L (1.0-5.0) % Baso % (Auto) 0.1 (0.0-0.5) % Neut # (Auto) 7.41 (2.00-7.50) K/uL Lymph # (Auto) 0.72 L (1.50-4.00) K/uL Brule # (Auto) 0.76 (0.20-0.80) K/uL Eos # (Auto) 0.00 L (0.04-0.40) K/uL Baso # (Auto) 0.01 L (0.02-0.10) K/uL Sodium 128 L (136-145) mmol/L Potassium 7.4 H* D (3.5-5.1) mmol/L Chloride 97 L (98-107) mmol/L Carbon Dioxide 28.0 (21.0-32.0) mmol/L Anion Gap 10.4 (5.0-15.0) mmol/L BUN 102 H* D (8-26) mg/dL Creatinine 2.30 H D (0.55-1.02) mg/dL Est Cr Clr Drug Dosing 18.35 mL/min Estimated GFR (MDRD) 20 L (>60) MLS/MIN BUN/Creatinine Ratio 44.3 H (6-25) Glucose 290 H D (74-100) mg/dL POC Glucose 266 H (74-110) mg/dL Calcium Not Reportable Ionized Calcium 4.3 L (4.5-5.3) mg/dL Troponin I (0.000-0.060) ng/mL Free T4 Direct (0.82-1.77) ng/dL 11/04/18 Range/Units 11:00 WBC (4.0-11.0) K/uL RBC (3.80-5.80) M/uL Hgb (11.5-16.5) g/dL Hct (37.0-47.0) % MCV (76-96) fL MCH (27.0-32.0) pg MCHC (31.0-35.0) g/dL RDW (11.0-16.0) % Plt Count (150-500) K/uL MPV (6.0-10.0) fL Neut % (Auto) (45.0-70.0) % Lymph % (Auto) (20.0-40.0) % Brule % (Auto) (3.0-10.0) % Eos % (Auto) (1.0-5.0) % Baso % (Auto) (0.0-0.5) % Neut # (Auto) (2.00-7.50) K/uL Lymph # (Auto) (1.50-4.00) K/uL Brule # (Auto) (0.20-0.80) K/uL Eos # (Auto) (0.04-0.40) K/uL Baso # (Auto) (0.02-0.10) K/uL Sodium (136-145) mmol/L Potassium (3.5-5.1) mmol/L Chloride (98-107) mmol/L Carbon Dioxide (21.0-32.0) mmol/L Anion Gap (5.0-15.0) mmol/L BUN (8-26) mg/dL Creatinine (0.55-1.02) mg/dL Est Cr Clr Drug Dosing mL/min Estimated GFR (MDRD) (>60) MLS/MIN BUN/Creatinine Ratio (6-25) Glucose (74-100) mg/dL POC Glucose (74-110) mg/dL Calcium Ionized Calcium (4.5-5.3) mg/dL Troponin I < 0.080 H* D (0.000-0.060) ng/mL Free T4 Direct (0.82-1.77) ng/dL Med Orders - Current: Current Medications Acetaminophen (Tylenol) 650 mg PO Q6H PRN PRN Reason: Pain Last Admin: 11/03/18 03:17 Dose: 650 mg Albuterol/Ipratropium (Duoneb 3.0-0.5 Mg/3 Ml) 3 ml NEB Q6H [facility] Last Admin: 11/04/18 11:51 Dose: 3 ml Apixaban (Eliquis) 5 mg PO BID [facility] Last Admin: 11/04/18 08:52 Dose: 5 mg Aspirin (Halfprin) 81 mg PO DAILY [facility] Last Admin: 11/04/18 08:52 Dose: 81 mg Bumetanide (Bumex) 0.5 mg PO BIDDIURETIC [facility] Last Admin: 11/04/18 08:52 Dose: 0.5 mg Clopidogrel Bisulfate (Plavix) 75 mg PO DAILY [facility] Last Admin: 11/04/18 08:51 Dose: 75 mg Guaifenesin/Codeine Phosphate (Robitussin Ac) 5 ml PO Q4H PRN PRN Reason: Cough Last Admin: 11/01/18 19:01 Dose: 5 ml Sodium Chloride (Normal Saline) 1,000 mls @ 75 mls/hr IV ASDIRECTED [facility] Last Admin: 11/04/18 09:39 Dose: 75 mls/hr Insulin Aspart (Novolog) 0 unit SUBCUT 0800,1200,1700 [facility]; Protocol Last Admin: 11/04/18 09:00 Dose: 6 units Isosorbide Mononitrate (Imdur) 30 mg PO DAILY [facility] Last Admin: 11/04/18 08:54 Dose: 30 mg Levothyroxine Sodium (Levothyroxine) 25 mcg PO ACBREAKFAST [facility] Last Admin: 11/04/18 06:00 Dose: 25 mcg Melatonin (Melatonin) 3 mg PO BEDTIME [facility] Last Admin: 11/03/18 19:40 Dose: 3 mg Metolazone (Zaroxolyn) 5 mg PO BID@0730,1530 [facility] Last Admin: 11/04/18 08:53 Dose: 5 mg Multivitamins/Minerals (Thera M Plus) 1 tab PO DAILY [facility] Last Admin: 11/04/18 08:52 Dose: 1 tab Pantoprazole Sodium (Protonix) 40 mg PO ACBREAKFAST [facility] Last Admin: 11/04/18 06:00 Dose: 40 mg Senna/Docusate Sodium (Senna Plus) 1 tab PO BID PRN PRN Reason: Constipation Sodium Chloride (Normal Saline) 10 ml FLUSH BID [facility] Last Admin: 11/04/18 09:25 Dose: Not Given Discontinued Medications Albuterol/Ipratropium (Duoneb 3.0-0.5 Mg/3 Ml) 3 ml NEB Q6H [facility] Last Admin: 11/01/18 19:02 Dose: 3 ml Albuterol/Ipratropium (Duoneb 3.0-0.5 Mg/3 Ml) Confirm Administered Dose 3 ml .ROUTE .STK-MED ONE Stop: 10/30/18 04:01 Last Admin: 10/30/18 05:04 Dose: Not Given Albuterol/Ipratropium (Duoneb 3.0-0.5 Mg/3 Ml) Confirm Administered Dose 3 ml .ROUTE .STK-MED ONE Stop: 10/30/18 09:58 Last Admin: 10/30/18 11:23 Dose: Not Given Albuterol/Ipratropium (Duoneb 3.0-0.5 Mg/3 Ml) Confirm Administered Dose 3 ml .ROUTE .STK-MED ONE Stop: 10/30/18 15:52 Last Admin: 10/30/18 16:14 Dose: Not Given Albuterol/Ipratropium (Duoneb 3.0-0.5 Mg/3 Ml) Confirm Administered Dose 3 ml .ROUTE .ST-MED ONE Stop: 10/31/18 03:07 Last Admin: 10/31/18 05:02 Dose: Not Given Albuterol/Ipratropium (Duoneb 3.0-0.5 Mg/3 Ml) Confirm Administered Dose 3 ml .ROUTE .ST-MED ONE Stop: 10/31/18 08:51 Last Admin: 10/31/18 09:57 Dose: Not Given Albuterol/Ipratropium (Duoneb 3.0-0.5 Mg/3 Ml) Confirm Administered Dose 3 ml .ROUTE .ST-MED ONE Stop: 10/31/18 15:41 Last Admin: 10/31/18 15:47 Dose: Not Given Albuterol/Ipratropium (Duoneb 3.0-0.5 Mg/3 Ml) Confirm Administered Dose 3 ml .ROUTE .ST-MED ONE Stop: 11/01/18 10:28 Last Admin: 11/01/18 10:49 Dose: Not Given Albuterol/Ipratropium (Duoneb 3.0-0.5 Mg/3 Ml) Confirm Administered Dose 3 ml .ROUTE .STK-MED ONE Stop: 11/01/18 15:12 Last Admin: 11/01/18 15:14 Dose: Not Given Albuterol/Ipratropium (Duoneb 3.0-0.5 Mg/3 Ml) Confirm Administered Dose 3 ml .ROUTE .STK-MED ONE Stop: 11/01/18 18:59 Last Admin: 11/01/18 19:03 Dose: Not Given Carvedilol (Coreg) 12.5 mg PO BID [facility] Last Admin: 11/03/18 07:29 Dose: 12.5 mg Carvedilol (Coreg) 6.25 mg PO BID [facility] Furosemide (Lasix) 20 mg IVPUSH ONETIME ONE Stop: 10/29/18 14:54 Last Admin: 10/29/18 16:19 Dose: 20 mg Furosemide (Lasix) 40 mg IVPUSH NOW ONE Stop: 10/30/18 08:33 Last Admin: 10/30/18 11:37 Dose: 40 mg Furosemide (Lasix) Confirm Administered Dose 40 mg .ROUTE .STK-MED ONE Stop: 10/30/18 11:31 Last Admin: 10/30/18 11:49 Dose: Not Given Hydrochlorothiazide (Hydrochlorothiazide) 25 mg PO DAILY [facility] Last Admin: 11/03/18 07:28 Dose: 25 mg Ceftriaxone Sodium 1 gm/ (Sodium Chloride) 50 mls @ 200 mls/hr IV Q24H NE[facility] Levofloxacin/Dextrose 500 mg/ (Premix) 100 mls @ 100 mls/hr IV ASDIRECTED [facility] Stop: 10/29/18 23:59 Last Admin: 10/29/18 16:25 Dose: 100 mls/hr Levofloxacin/Dextrose (Levaquin In D5w 500 Mg/100 Ml) 100 mls @ 100 mls/hr IV DAILY [facility] Stop: 11/05/18 23:59 Last Admin: 11/01/18 07:22 Dose: Not Given Levofloxacin/Dextrose (Levaquin In D5w 500 Mg/100 Ml) Confirm Administered Dose 100 mls @ as directed IV .STK-MED ONE Stop: 10/29/18 15:57 Last Admin: 10/29/18 16:20 Dose: Not Given Sodium Chloride (Normal Saline) 1,000 mls @ 125 mls/hr IV ASDIRECTED [facility] Last Admin: 11/01/18 15:35 Dose: 125 mls/hr Sodium Chloride (Normal Saline) 500 mls @ 250 mls/hr IV BOLUS ONE Stop: 11/01/18 11:35 Last Admin: 11/01/18 10:00 Dose: 250 mls/hr Insulin Aspart (Novolog) 0 unit SUBCUT QIDACANDBED [facility]; Protocol Last Admin: 11/02/18 13:07 Dose: 2 units Insulin Aspart (Novolog) 0 unit SUBCUT TIDAC [facility]; Protocol Last Admin: 11/02/18 17:45 Dose: 6 units Insulin Aspart (Novolog) 8 unit SUBCUT ONETIME ONE Stop: 11/04/18 10:46 Last Admin: 11/04/18 10:46 Dose: 8 units Isosorbide Mononitrate (Imdur) Confirm Administered Dose 30 mg .ROUTE .STK-MED ONE Stop: 11/03/18 19:50 Last Admin: 11/03/18 20:41 Dose: Not Given Levofloxacin (Levaquin) 500 mg PO Q24H [facility] Stop: 11/05/18 23:59 Last Admin: 11/01/18 07:55 Dose: 500 mg Levofloxacin (Levaquin) 250 mg PO DAILY [facility] Last Admin: 11/03/18 07:23 Dose: 250 mg Methylprednisolone Sodium Succinate (Solu-Medrol) Confirm Administered Dose 125 mg .ROUTE .STK-MED ONE Stop: 11/01/18 08:51 Last Admin: 11/01/18 10:00 Dose: Not Given Methylprednisolone Sodium Succinate (Solu-Medrol) 125 mg IVPUSH ONETIME ONE Stop: 11/01/18 09:01 Last Admin: 11/01/18 09:00 Dose: 125 mg Non-Formulary Medication (Metformin Hcl [Metformin Hcl]) 850 mg PO BID [facility] Last Admin: 11/02/18 07:24 Dose: 850 mg Prednisone (Prednisone) 40 mg PO WITHBREAKFAST [facility] Stop: 11/04/18 10:00 Last Admin: 11/02/18 07:14 Dose: 40 mg Prednisone (Prednisone) Confirm Administered Dose 40 mg .ROUTE .STK-MED ONE Stop: 11/01/18 10:04 Last Admin: 11/01/18 10:25 Dose: Not Given Prednisone (Prednisone) 40 mg PO 0800 [facility] Stop: 11/04/18 11:00 Last Admin: 11/03/18 07:27 Dose: 40 mg Prednisone (Prednisone) 30 mg PO WITHBREAKFAST [facility] Stop: 11/07/18 11:00 Senna/Docusate Sodium (Senna Plus) Confirm Administered Dose 1 tab .ROUTE .STK- MED ONE Stop: 11/03/18 18:17 Last Admin: 11/03/18 18:34 Dose: 1 tab Sodium Polystyrene Sulfonate (Kayexalate) 15 gm PO ONETIME ONE Stop: 11/04/18 10:44 Last Admin: 11/04/18 10:45 Dose: 15 gm Sodium Polystyrene Sulfonate (Kayexalate) Confirm Administered Dose 15 gm .ROUTE .STK-MED ONE Stop: 11/04/18 10:44 Last Admin: 11/04/18 11:48 Dose: Not Given Valsartan (Diovan) 40 mg PO DAILY [facility] Last Admin: 10/31/18 08:24 Dose: 40 mg Valsartan (Diovan) 20 mg PO DAILY [facility] Last Admin: 11/02/18 07:15 Dose: 20 mg Valsartan (Diovan) 10 mg PO DAILY [facility] Last Admin: 11/03/18 10:31 Dose: Not Given Valsartan (Diovan) Confirm Administered Dose 40 mg .ROUTE .STK-MED ONE Stop: 11/03/18 07:13 Last Admin: 11/03/18 18:54 Dose: Not Given - Exam Quality Assessment: Reports: Urine Catheter General: Reports: Alert, Oriented HEENT: Reports: Pupils Equal, Pupils Reactive, EOMI, Mucous Membr. Moist/[place] Neck: Reports: Supple Lungs: Reports: Decreased Breath Sounds (absent air entery left base and slight in the right base. Expiratory crackles in the right base.) Cardiovascular: Reports: Bradycardia. Denies: Murmurs GI/Abdominal Exam: Normal Bowel Sounds, Soft, Non-Tender, No Organomegaly Extremities: Normal Inspection, Normal Range of Motion, Normal Capillary Refill , Pedal Edema (B/l pitting edema) Skin: Reports: Warm, Intact EKG INTERPRETATION EKG Date: 11/04/18 Rate (Beats/Min): 44 EKG Interpretation Comments: junctional rhythm
[2018-11-04 13:50] VITALS: BP 130/52
[2018-11-04] MEDS ORDERED: Albuterol/Ipratropium 3.0-0.5 MG/3 ML Neb Soln ONE (14:00)
--- NOTE | 2018-11-04 19:07 | CR ---
DATE OF SERVICE: 04/06/2018 CLINICAL DATA: Pneumonia followup. FRONTAL VIEW OF THE CHEST: Comparison is made to a prior exam dated 10/29/2018. The heart size is stable. There is progressive atelectasis and consolidation in both lower lungs. Bilateral pneumonia should be considered. There is blunting of both costophrenic angles, left greater than right consistent with bilateral pleural effusions. The left pleural effusion has increased from the prior study. The exam is otherwise unchanged. [id number] [facility]
[2018-11-05] MEDS ORDERED: predniSONE 10 MG Tab PO SCH (08:00)
== END 2018-11-04 13:55 | DRG 194 ==
LOC: LB.CLINIC 11:36 → LB.MS 14:47
PROVIDERS: ADMIT Nurse Practitioner Family; ATTEND Family Medicine
DX: J18.1 Lobar pneumonia, unspecified organism (principal); J44.0 Chronic obstructive pulmonary disease with (acute) lower respiratory infection; J90 Pleural effusion, not elsewhere classified; N17.9 Acute kidney failure, unspecified; D64.9 Anemia, unspecified; N18.3 Chronic kidney disease, stage 3 (moderate); I95.9 Hypotension, unspecified; R53.1 Weakness; I48.0 Paroxysmal atrial fibrillation; I50.9 Heart failure, unspecified; E03.9 Hypothyroidism, unspecified; E87.6 Hypokalemia; E11.9 Type 2 diabetes mellitus without complications; Z79.82 Long term (current) use of aspirin; Z86.73 Personal history of transient ischemic attack (TIA), and cerebral infarction without residual deficits; Z79.84 Long term (current) use of oral hypoglycemic drugs; Z79.899 Other long term (current) drug therapy; Z88.2 Allergy status to sulfonamides; Z88.1 Allergy status to other antibiotic agents; Z99.81 Dependence on supplemental oxygen
CPT/HCPCS: 36415; 71045; 71046; 80047; 80048; 82330; 82607; 82746; 82962; 83880; 84439; 84443; 84484; 85014; 85018; 85025; 86376; 93005; 94640; 97161-GP; 97165-GO; 97535-GO; A0425; A0429; A9270-GY; J1940; J1956; J2930; J7030; J7040; J7620-GY

== ENCOUNTER 2018-11-15 10:02 | Inpatient (IN) | payer MEDICARE ==
[2018-11-22] MEDS ORDERED: Nitroglycerin 0.4 MG Tab.SL SL PRN (14:30)
--- NOTE | 2018-11-22 15:52 | PCM.HP.2 ---
H&P History of Present Illness - General Date of Service: 11/22/18 Admit Problem/Dx: Admission Diagnosis/Problem Admission Diagnosis/Problem Weakness Source of Information: Patient, Old Records, RN History Limitations: Reports: No Limitations, Other (short term memory deficit) - History of Present Illness Initial Comments - Free Text/Narative: 88 yr female presents for Swing bed admit for weakness and strengthening. s/p Acute respiratory distress, CHF, Diabetes, and generalized weakness with cognitive deficits. PT/OT/DECONTAMINATOR consult ordered. She is on a soft diet, consistent carb diet. States she is feeling well and cough is improved, still using oxygen continuously. States she would like to go spend the winter with her daughter in [place]. She does have walker and is receiving assist with ambulation and transfers. Middle Mid-Posterior Back Pain Score (Numeric/FACES): 2 - Related Data Allergies/Adverse Reactions: Allergies Allergy/AdvReac Type Severity Reaction Status Date / Time erythromycin base Allergy Rash Verified 12/25/15 12:03 sulfamethoxazole Allergy Vomiting Verified 12/25/15 12:03 [From Bactrim] trimethoprim [From Bactrim] Allergy Vomiting Verified 12/25/15 12:03 Home Medications: Home Meds glipiZIDE [Glipizide Xl] 10 mg PO DAILY 06/20/14 [History] metFORMIN HCl [Metformin HCl] 850 mg PO BID 06/20/14 [History] Apixaban [Eliquis] 5 mg PO BID 12/25/15 [History] Aspirin [Sedrick Chewable] 81 mg PO DAILY 12/25/15 [History] Carvedilol 12.5 mg PO BID 12/25/15 [History] Clopidogrel [Plavix] 75 mg PO DAILY 12/25/15 [History] Hydrochlorothiazide 25 mg PO DAILY 12/25/15 [History] Nitroglycerin [IJP: Nitroglycerin] 0.4 mg SL ASDIRECTED 12/25/15 [History] Pantoprazole Sodium 40 mg PO ACBREAKFAST 12/25/15 [History] atorvaSTATin Calcium [Atorvastatin Calcium] 40 mg PO QPM 12/25/15 [History] Losartan [Cozaar] 25 mg PO DAILY 10/29/18 [History] Brimonidine Tartrate/Timolol [Combigan 0.2%-0.5% Eye Drops] 1 drop EYEBOTH BID 11/22/18 [History] Furosemide 40 mg PO BID 11/22/18 [History] Pioglitazone [Actos] 45 mg PO DAILY 11/22/18 [History] Sennosides/Docusate Sodium [Senna-Docusate Sodium Tablet] 1 tab PO BID MDD 8.6/ 50mg 11/22/18 [History] atorvaSTATin [Lipitor] 40 mg PO DAILY 11/22/18 [History] Past Medical History HEENT History: Reports: Hard of Hearing, Impaired Vision Cardiovascular History: Reports: High Cholesterol, Hypertension, Other (See Below) Other Cardiovascular History: Pt denies other conditions, but on clopidogrel, asa and apixiban Respiratory History: Reports: Other (See Below) Other Respiratory History: respiratory failure secondary to pneumonia 2018 Genitourinary History: Reports: Other (See Below) Other Genitourinary History: stress incontinence PIG BREEDER History: Reports: Other OB/BYN History: 3 pregnancies; 3 kids Musculoskeletal History: Reports: Fracture Other Musculoskeletal History: possible ulnar stress facture with fall 2016 Neurological History: Reports: Other (See Below) Other Neuro History: pt had a fall without a known cause; she questions TIA; was not diagnosed Endocrine/Metabolic History: Reports: Diabetes, Type II, Obesity/BMI 30+ Dermatologic History: Reports: Other (See Below) Other Dermatologic History: bruises easily; on blood thinners - Infectious Disease History Infectious Disease History: Reports: Chicken Pox, Measles, Pertussis (Whooping Cough) - Past Surgical History HEENT Surgical History: Reports: None Cardiovascular Surgical History: Reports: None Female Surgical History: Reports: None Neurological Surgical History: Reports: None Musculoskeletal Surgical History: Reports: None H&P Review of Systems - Review of Systems: Review Of Systems: See Below General: Reports: Weakness. Denies: Fever, Chills HEENT: Reports: Dysphasia, Glasses. Denies: Headaches, Sinus Congestion Pulmonary: Reports: Shortness of Breath. Denies: Wheezing, Cough Cardiovascular: Reports: Edema. Denies: Chest Pain, Lightheadedness Gastrointestinal: Reports: Constipation. 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 Denies: Dizziness, Headache Hematologic/Lymphatic: Reports: Easy Bruising Exam - Exam Exam: See Below - Vital Signs Vital Signs: Last Vital Signs Temp 97.1 F 11/22/18 14:29 Pulse 63 11/22/18 14:29 Resp 18 11/22/18 14:29 BP 175/68 H 11/22/18 14:29 Pulse Ox 99 11/22/18 14:29 Weight: 200 lb 3.2 oz - Exam Quality Assessment: Supplemental Oxygen. No: Skin Breakdown General: Alert, Oriented, Cooperative HEENT: PERRLA, Mucosa Moist & [place], Glasses Neck: Supple, Trachea Midline Lungs: Clear to Auscultation, Normal Respiratory Effort Cardiovascular: Regular Rate, Regular Rhythm GI/Abdominal Exam: Normal Bowel Sounds, Soft, Non-Tender (Female) Exam: Normal External Exam Extremities: Other (mild ankle, nonpitting edema) Skin: Warm, Dry, Other (small skin tear to left forearm) Neurological: Strength Equal Bilateral, Normal Speech Neuro Extensive - Mental Status: Alert, Oriented x3, Normal Mood/Affect Psychiatric: Alert, Normal Affect, Normal Mood - Problem List (1) Weakness generalized SNOMED Code(s): 72560886 ICD Code: R53.1 - WEAKNESS Status: Acute (2) CHF (congestive heart failure) SNOMED Code(s): 79836885 ICD Code: I50.9 - HEART FAILURE, UNSPECIFIED Status: Acute (3) Diabetes mellitus SNOMED Code(s): 90580054 ICD Code: E11.9 - TYPE 2 DIABETES MELLITUS WITHOUT COMPLICATIONS Status: Acute (4) Supplemental oxygen dependent SNOMED Code(s): 810899836921 ICD Code: Z99.81 - DEPENDENCE ON SUPPLEMENTAL OXYGEN Status: Acute (5) Anticoagulant long-term use SNOMED Code(s): 074069189 ICD Code: Z79.01 - JAIL (CURRENT) USE OF ANTICOAGULANTS Status: Acute Problem List Initiated/Reviewed/Updated: Yes Orders Last 24hrs: Active Orders 24 hr Category Date Time Status Patient Status [ADT] Routine ADT 11/22/18 14:18 Ordered Glucose [Blood Glucose Check, Bedside] [] DAILY Care 11/23/18 07:30 Ordered Height and Weight [] DAILY Care 11/22/18 14:29 Ordered Oxygen Therapy [] PRN Care 11/22/18 14:29 Ordered Up With Assistance [RC] ASDIRECTED Care 11/22/18 14:29 Ordered Vital Signs [RC] Q4H Care 11/22/18 14:29 Ordered Consult to Speech Language Pathology [DECONTAMINATOR Evaluation Cons 11/22/18 15:43 Ordered and Treatment] [CONS] Routine OT Evaluation and Treatment [CONS] Routine Cons 11/22/18 15:43 Ordered PT Evaluation and Treatment [CONS] Routine Cons 11/22/18 15:43 Ordered Carbohydrate Counting [Consistent Carbohydrate Diet] [ Diet 11/22/18 Dinner Ordered DIET] Heart Healthy Diet [DIET] Diet 11/22/18 Dinner Ordered Regular Diet [DIET] Diet 11/22/18 Dinner Ordered Apixaban [Eliquis] Med 11/22/18 20:00 Ordered 5 mg PO BID Aspirin Med 11/23/18 08:00 Ordered 81 mg PO DAILY Brimonidine Tartrate/Timolol [Combigan 0.2%-0.5% Eye Med 11/22/18 20:00 Ordered Drops] 1 drop EYEBOTH BID Carvedilol [Coreg] Med 11/22/18 20:00 Ordered 12.5 mg PO BID Clopidogrel [Plavix] Med 11/23/18 08:00 Ordered 75 mg PO DAILY Docusate Sodium/Sennosides [Senna Plus] Med 11/22/18 20:00 Ordered 1 tab PO BID Furosemide [Lasix] Med 11/22/18 17:00 Ordered 40 mg PO BID Losartan [Cozaar] Med 11/23/18 08:00 Ordered 25 mg PO DAILY Nitroglycerin [Nitrostat] Med 11/22/18 14:30 Ordered 0.4 mg SL ASDIRECTED Pantoprazole [ProTONIX] Med 11/23/18 07:00 Ordered 40 mg PO ACBREAKFAST Pioglitazone [Actos] Med 11/23/18 08:00 Ordered 45 mg PO DAILY Timolol Maleate [Timoptic 0.5% Ophth Soln] Med 11/22/18 20:00 Active 0 ml EYEBOTH BID atorvaSTATin [Lipitor] Med 11/22/18 20:00 Ordered 40 mg PO DAILY glipiZIDE [Glipizide Xl] Med 11/23/18 08:00 Ordered 10 mg PO DAILY hydroCHLOROthiazide Med 11/23/18 08:00 Ordered 25 mg PO DAILY metFORMIN HCl [Metformin HCl] Med 11/22/18 18:00 Ordered 850 mg PO BID Medication Orders Apixaban (Eliquis) 5 mg PO BID [facility] Aspirin (Halfprin) 81 mg PO DAILY [facility] Atorvastatin Calcium (Lipitor) 40 mg PO DAILY [facility] Brimonidine Tartrate (Alphagan 0.2% Ophth Soln) 0 ml EYEBOTH BID [facility] Carvedilol (Coreg) 12.5 mg PO BID [facility] Clopidogrel Bisulfate (Plavix) 75 mg PO DAILY [facility] Furosemide (Lasix) 40 mg PO BID [facility] Glipizide (Glucotrol Xl) 10 mg PO DAILY [facility] Hydrochlorothiazide (Hydrochlorothiazide) 25 mg PO DAILY [facility] Losartan Potassium (Cozaar) 25 mg PO DAILY [facility] Nitroglycerin (Nitrostat) 0.4 mg SL ASDIRECTED [facility] Non-Formulary Medication (Metformin Hcl [Metformin Hcl]) 850 mg PO BID [facility] Pantoprazole Sodium (Protonix) 40 mg PO ACBREAKFAST [facility] Pioglitazone HCl (Actos) 45 mg PO DAILY [facility] Senna/Docusate Sodium (Senna Plus) 1 tab PO BID [facility] Timolol Maleate (Timoptic 0.5% Ophth Soln) 0 ml EYEBOTH BID [facility] Assessment/Plan Comment:: Swing bed admit for weakness and strengthening. s/p Acute respiratory distress , CHF, Diabetes, and generalized weakness with cognitive deficits. PT/OT/DECONTAMINATOR consult ordered. She is on a soft diet, consistent carb diet. States she is feeling well and cough is improved, still using oxygen continuously. States she would like to go spend the winter with her daughter in [place]. She does have walker and is receiving assist with ambulation and transfers.
[2018-11-22] MEDS ORDERED: Furosemide 40 MG Tab PO SCH (18:30)
[2018-11-22] MEDS: metFORMIN 500 MG Tab PO SCH (18:38)
[2018-11-22] MEDS: Carvedilol 12.5 MG Tab PO SCH (21:11)
[2018-11-22] MEDS: Apixaban 5 MG Tab PO SCH (21:11)
[2018-11-22] MEDS: atorvaSTATin 40 MG Tab PO SCH (21:11)
[2018-11-22] MEDS: Timolol Maleate 0.5% Ophth Soln 5 ML Bottle EYEBOTH SCH (22:57)
[2018-11-22] MEDS: Brimonidine 0.2% Ophth Soln 5 ML Bottle EYEBOTH SCH (22:57)
[2018-11-23] MEDS: Pantoprazole 40 MG Tab.CR PO SCH (06:28)
[2018-11-23] MEDS ORDERED: Tuberculin, PPD 5 Units/0.1 ML 1 ML MDV IDERM ONE (08:00)
[2018-11-23] MEDS: Hydrochlorothiazide 25 MG Tab PO SCH (08:43)
[2018-11-23] MEDS: Furosemide 40 MG Tab PO SCH ×2 (08:43→13:39)
[2018-11-23] MEDS: Losartan 25 MG Tab PO SCH (08:43)
[2018-11-23] MEDS: metFORMIN 500 MG Tab PO SCH ×3 (08:43→18:06)
[2018-11-23] MEDS: Clopidogrel 75 MG Tab PO SCH (08:43)
[2018-11-23] MEDS: atorvaSTATin 40 MG Tab PO SCH (08:44)
[2018-11-23] MEDS: Aspirin 81 MG Tab.EC PO SCH (08:44)
[2018-11-23] MEDS: Carvedilol 12.5 MG Tab PO SCH ×2 (08:44→19:32)
[2018-11-23] MEDS: Apixaban 5 MG Tab PO SCH ×2 (08:45→19:33)
[2018-11-23] MEDS: glipiZIDE 5 MG Tab.ER PO SCH (08:45)
[2018-11-23] MEDS ORDERED: Pioglitazone 15 MG Tab ONE (09:06)
[2018-11-23] MEDS: Brimonidine 0.2% Ophth Soln 5 ML Bottle EYEBOTH SCH ×2 (09:08→19:32)
[2018-11-23] MEDS: Timolol Maleate 0.5% Ophth Soln 5 ML Bottle EYEBOTH SCH ×2 (09:08→19:57)
[2018-11-24] MEDS ORDERED: Pioglitazone 15 MG Tab ONE (07:35)
[2018-11-24] MEDS: Pantoprazole 40 MG Tab.CR PO SCH (07:45)
[2018-11-24] MEDS: Carvedilol 12.5 MG Tab PO SCH ×2 (07:58→20:12)
[2018-11-24] MEDS: Losartan 25 MG Tab PO SCH (07:59)
[2018-11-24] MEDS: metFORMIN 500 MG Tab PO SCH ×3 (07:59→17:40)
[2018-11-24] MEDS: Apixaban 5 MG Tab PO SCH ×2 (07:59→20:13)
[2018-11-24] MEDS: Brimonidine 0.2% Ophth Soln 5 ML Bottle EYEBOTH SCH (08:00)
[2018-11-24] MEDS: Timolol Maleate 0.5% Ophth Soln 5 ML Bottle EYEBOTH SCH ×2 (08:00→20:13)
[2018-11-24] MEDS: glipiZIDE 5 MG Tab.ER PO SCH (08:00)
[2018-11-24] MEDS: Hydrochlorothiazide 25 MG Tab PO SCH (08:01)
[2018-11-24] MEDS: Furosemide 40 MG Tab PO SCH ×2 (08:01→13:43)
[2018-11-24] MEDS: Aspirin 81 MG Tab.EC PO SCH (08:01)
[2018-11-24] MEDS: Clopidogrel 75 MG Tab PO SCH (08:02)
[2018-11-24] MEDS: atorvaSTATin 40 MG Tab PO SCH (08:02)
[2018-11-24] MEDS ORDERED: Brimonidine 0.2% Ophth Soln 5 ML Bottle EYEBOTH SCH (14:00)
[2018-11-24] MEDS: BRIMONIDINE 0.15% EYEBOTH SCH (20:15)
[2018-11-25] MEDS ORDERED: Pioglitazone 15 MG Tab ONE (07:15)
[2018-11-25] MEDS: BRIMONIDINE 0.15% EYEBOTH SCH ×2 (08:00→19:20)
[2018-11-25] MEDS: Hydrochlorothiazide 25 MG Tab PO SCH (08:09)
[2018-11-25] MEDS: Pantoprazole 40 MG Tab.CR PO SCH (08:09)
[2018-11-25] MEDS: glipiZIDE 5 MG Tab.ER PO SCH (08:10)
[2018-11-25] MEDS: Carvedilol 12.5 MG Tab PO SCH ×2 (08:10→19:20)
[2018-11-25] MEDS: Aspirin 81 MG Tab.EC PO SCH (08:10)
[2018-11-25] MEDS: atorvaSTATin 40 MG Tab PO SCH (08:11)
[2018-11-25] MEDS: Clopidogrel 75 MG Tab PO SCH (08:11)
[2018-11-25] MEDS: Losartan 25 MG Tab PO SCH (08:11)
[2018-11-25] MEDS: metFORMIN 500 MG Tab PO SCH ×3 (08:11→17:50)
[2018-11-25] MEDS: Furosemide 40 MG Tab PO SCH ×2 (08:11→14:10)
[2018-11-25] MEDS: Apixaban 5 MG Tab PO SCH ×2 (08:14→19:20)
[2018-11-25] MEDS: Timolol Maleate 0.5% Ophth Soln 5 ML Bottle EYEBOTH SCH ×2 (08:17→19:20)
[2018-11-26] MEDS: Carvedilol 12.5 MG Tab PO SCH ×2 (07:29→19:09)
[2018-11-26] MEDS: atorvaSTATin 40 MG Tab PO SCH (07:29)
[2018-11-26] MEDS: Losartan 25 MG Tab PO SCH (07:29)
[2018-11-26] MEDS: Aspirin 81 MG Tab.EC PO SCH (07:30)
[2018-11-26] MEDS: Apixaban 5 MG Tab PO SCH ×2 (07:30→19:08)
[2018-11-26] MEDS: metFORMIN 500 MG Tab PO SCH ×3 (07:30→19:08)
[2018-11-26] MEDS: Clopidogrel 75 MG Tab PO SCH (07:30)
[2018-11-26] MEDS: Pantoprazole 40 MG Tab.CR PO SCH (07:30)
[2018-11-26] MEDS: glipiZIDE 5 MG Tab.ER PO SCH (07:31)
[2018-11-26] MEDS: BRIMONIDINE 0.15% EYEBOTH SCH ×2 (07:31→19:10)
[2018-11-26] MEDS: Hydrochlorothiazide 25 MG Tab PO SCH (07:31)
[2018-11-26] MEDS: Timolol Maleate 0.5% Ophth Soln 5 ML Bottle EYEBOTH SCH ×2 (07:32→19:10)
[2018-11-26] MEDS: Furosemide 40 MG Tab PO SCH ×2 (07:33→13:06)
[2018-11-26] MEDS ORDERED: Pioglitazone 15 MG Tab ONE ×2 (07:39→07:41)
[2018-11-27] MEDS: Apixaban 5 MG Tab PO SCH ×2 (08:09→20:18)
[2018-11-27] MEDS: atorvaSTATin 40 MG Tab PO SCH (08:09)
[2018-11-27] MEDS: Clopidogrel 75 MG Tab PO SCH (08:09)
[2018-11-27] MEDS: Aspirin 81 MG Tab.EC PO SCH (08:09)
[2018-11-27] MEDS: metFORMIN 500 MG Tab PO SCH ×3 (08:09→20:23)
[2018-11-27] MEDS: Furosemide 40 MG Tab PO SCH ×2 (08:09→20:18)
[2018-11-27] MEDS: Pantoprazole 40 MG Tab.CR PO SCH (08:10)
[2018-11-27] MEDS: Hydrochlorothiazide 25 MG Tab PO SCH (08:10)
[2018-11-27] MEDS: Losartan 25 MG Tab PO SCH (08:10)
[2018-11-27] MEDS: glipiZIDE 5 MG Tab.ER PO SCH (08:13)
[2018-11-27] MEDS: Carvedilol 12.5 MG Tab PO SCH ×2 (08:13→20:18)
[2018-11-27] MEDS: BRIMONIDINE 0.15% EYEBOTH SCH ×2 (08:14→20:19)
[2018-11-27] MEDS: Timolol Maleate 0.5% Ophth Soln 5 ML Bottle EYEBOTH SCH ×2 (08:14→20:23)
[2018-11-28] MEDS: glipiZIDE 5 MG Tab.ER PO SCH (08:19)
[2018-11-28] MEDS: Pantoprazole 40 MG Tab.CR PO SCH (08:19)
[2018-11-28] MEDS: Clopidogrel 75 MG Tab PO SCH (08:19)
[2018-11-28] MEDS: atorvaSTATin 40 MG Tab PO SCH (08:19)
[2018-11-28] MEDS: metFORMIN 500 MG Tab PO SCH ×3 (08:19→17:34)
[2018-11-28] MEDS: Apixaban 5 MG Tab PO SCH ×2 (08:19→20:04)
[2018-11-28] MEDS: Furosemide 40 MG Tab PO SCH ×2 (08:19→14:52)
[2018-11-28] MEDS: Losartan 25 MG Tab PO SCH (08:20)
[2018-11-28] MEDS: Hydrochlorothiazide 25 MG Tab PO SCH (08:20)
[2018-11-28] MEDS: Aspirin 81 MG Tab.EC PO SCH (08:20)
[2018-11-28] MEDS: Carvedilol 12.5 MG Tab PO SCH ×2 (08:22→20:03)
[2018-11-28] MEDS: Timolol Maleate 0.5% Ophth Soln 5 ML Bottle EYEBOTH SCH ×2 (08:25→20:04)
[2018-11-28] MEDS: BRIMONIDINE 0.15% EYEBOTH SCH ×2 (08:25→20:04)
[2018-11-29] MEDS: Pantoprazole 40 MG Tab.CR PO SCH (06:12)
[2018-11-29] MEDS: glipiZIDE 5 MG Tab.ER PO SCH (09:07)
[2018-11-29] MEDS: Clopidogrel 75 MG Tab PO SCH (09:08)
[2018-11-29] MEDS: atorvaSTATin 40 MG Tab PO SCH (09:08)
[2018-11-29] MEDS: Hydrochlorothiazide 25 MG Tab PO SCH (09:08)
[2018-11-29] MEDS: Apixaban 5 MG Tab PO SCH ×2 (09:09→20:05)
[2018-11-29] MEDS: metFORMIN 500 MG Tab PO SCH ×3 (09:09→19:34)
[2018-11-29] MEDS: Aspirin 81 MG Tab.EC PO SCH (09:09)
[2018-11-29] MEDS: Carvedilol 12.5 MG Tab PO SCH ×2 (09:09→20:05)
[2018-11-29] MEDS: Furosemide 40 MG Tab PO SCH ×2 (09:10→14:50)
[2018-11-29] MEDS: Losartan 25 MG Tab PO SCH (09:10)
[2018-11-29] MEDS: BRIMONIDINE 0.15% EYEBOTH SCH ×2 (09:11→20:22)
[2018-11-29] MEDS: Timolol Maleate 0.5% Ophth Soln 5 ML Bottle EYEBOTH SCH ×2 (09:11→20:22)
[2018-11-30] MEDS: Pantoprazole 40 MG Tab.CR PO SCH (06:31)
[2018-11-30] MEDS: Aspirin 81 MG Tab.EC PO SCH (08:52)
[2018-11-30] MEDS: Losartan 25 MG Tab PO SCH (08:52)
[2018-11-30] MEDS: Hydrochlorothiazide 25 MG Tab PO SCH (08:53)
[2018-11-30] MEDS: Clopidogrel 75 MG Tab PO SCH (08:53)
[2018-11-30] MEDS: Carvedilol 12.5 MG Tab PO SCH (08:53)
[2018-11-30] MEDS: Apixaban 5 MG Tab PO SCH (08:53)
[2018-11-30] MEDS: atorvaSTATin 40 MG Tab PO SCH (08:53)
[2018-11-30] MEDS: Furosemide 40 MG Tab PO SCH (08:53)
[2018-11-30] MEDS: metFORMIN 500 MG Tab PO SCH (08:55)
[2018-11-30] MEDS: Timolol Maleate 0.5% Ophth Soln 5 ML Bottle EYEBOTH SCH (08:55)
[2018-11-30] MEDS: glipiZIDE 5 MG Tab.ER PO SCH (08:55)
[2018-11-30] MEDS: BRIMONIDINE 0.15% EYEBOTH SCH (08:55)
[2018-11-30 08:56] VITALS: BP 153/62; PULSE 59
--- NOTE | 2018-11-30 11:35 | PCM.DCSUM1 ---
Discharge Summary - Hospital Course Free Text/Narrative:: 88 year old pleasant female will be discharged to home today. Patient continues to have generalized weakness, although her strength as improved and she is able to ambulate with walker. Patient will be moving in with her daughter in [place] for help with ADLs. Patient has diagnosis of congestive heart failure Diagnosis: Stroke: No - Discharge Data Discharge Date: 11/30/18 Discharge Disposition: Home, Self-Care 01 Condition: Good - Referral to Home Health Primary Care Physician: PCP Unknown - Patient Summary/Data Consults: Consultations 11/22/18 15:43 Consult to Speech Language Pathology [WHEEL LOADER OPERATOR Evaluation and Treatment] [CONS] Routine Please Evaluate and Treat WHEEL LOADER OPERATOR Reason for Consult: Swallow This query below is only for informational purposes and is not editable. Admission Diagnosis/Problem: Weakness OT Evaluation and Treatment [CONS] Routine Please Evaluate and Treat. OT Reason for Consult: Strengthening This query below is only for informational purposes and is not editable. Admission Diagnosis/Problem: Weakness PT Evaluation and Treatment [CONS] Routine Please Evaluate and Treat. PT Reason for Consult: Strengthening This query below is only for informational purposes and is not editable. Admission Diagnosis/Problem: Weakness - Patient Instructions Diet: Heart Healthy Diet Activity: As Tolerated Driving: Do Not Drive Showering/Bathing: May Shower Notify Provider of: Fever, Increased Pain, Nausea and/or Vomiting - Discharge Plan *PRESCRIPTION DRUG MONITORING PROGRAM REVIEWED*: No *COPY OF PRESCRIPTION DRUG MONITORING REPORT IN PATIENT UTE: No Home Medications: Home Meds glipiZIDE [Glipizide Xl] 10 mg PO DAILY 06/20/14 [History] Apixaban [Eliquis] 5 mg PO BID 12/25/15 [History] Carvedilol 12.5 mg PO BID 12/25/15 [History] Clopidogrel [Plavix] 75 mg PO DAILY 12/25/15 [History] Hydrochlorothiazide 25 mg PO DAILY 12/25/15 [History] Nitroglycerin [IJP: Nitroglycerin] 0.4 mg SL ASDIRECTED 12/25/15 [History] Pantoprazole Sodium 40 mg PO ACBREAKFAST 12/25/15 [History] atorvaSTATin Calcium [Atorvastatin Calcium] 40 mg PO QPM 12/25/15 [History] Losartan [Cozaar] 25 mg PO DAILY 10/29/18 [History] Brimonidine Tartrate/Timolol [Combigan 0.2%-0.5% Eye Drops] 1 drop EYEBOTH BID 11/22/18 [History] Furosemide 40 mg PO BID 11/22/18 [History] Sennosides/Docusate Sodium [Senna-Docusate Sodium Tablet] 1 tab PO BID MDD 8.6/ 50mg 11/22/18 [History] Oxygen Therapy Mode: Room Air Patient Handouts: Hyperglycemia, [id number], Home Oxygen Use, Adult, How to Use a Walker, Hypoglycemia, [id number] - Discharge Summary/Plan Comment DC Time >30 min.: No - General Info Date of Service: 11/30/18 Functional Status: Reports: Pain Controlled - Review of Systems General: Reports: Weakness HEENT: Reports: Glasses Pulmonary: Reports: No Symptoms Cardiovascular: Reports: No Symptoms Gastrointestinal: Reports: No Symptoms Genitourinary: Reports: No Symptoms Musculoskeletal: Reports: Other (generalized weakness) Skin: Reports: No Symptoms Neurological: Reports: No Symptoms Psychiatric: Reports: Confusion - Patient Data Vitals - Most Recent: Last Vital Signs Temp 97.9 F 11/30/18 08:00 Pulse 59 L 11/30/18 08:53 Resp 17 11/30/18 08:00 BP 153/62 H 11/30/18 08:53 Pulse Ox 96 11/30/18 08:00 Weight - Most Recent: 431 lb 3.587 oz Med Orders - Current: Current Medications Apixaban (Eliquis) 5 mg PO BID [facility] Last Admin: 11/30/18 08:53 Dose: 5 mg Aspirin (Halfprin) 81 mg PO DAILY [facility] Last Admin: 11/30/18 08:52 Dose: 81 mg Atorvastatin Calcium (Lipitor) 40 mg PO DAILY [facility] Last Admin: 11/30/18 08:53 Dose: 40 mg Carvedilol (Coreg) 12.5 mg PO BID [facility] Last Admin: 11/30/18 08:53 Dose: 12.5 mg Clopidogrel Bisulfate (Plavix) 75 mg PO DAILY [facility] Last Admin: 11/30/18 08:53 Dose: 75 mg Furosemide (Lasix) 40 mg PO 0800,1400 [facility] Last Admin: 11/30/18 08:53 Dose: 40 mg Glipizide (Glucotrol Xl) 10 mg PO DAILY [facility] Last Admin: 11/30/18 08:55 Dose: 10 mg Hydrochlorothiazide (Hydrochlorothiazide) 25 mg PO DAILY [facility] Last Admin: 11/30/18 08:53 Dose: 25 mg Losartan Potassium (Cozaar) 25 mg PO DAILY [facility] Last Admin: 11/30/18 08:52 Dose: 25 mg Metformin HCl (Glucophage) 500 mg PO TIDMEALS [facility] Last Admin: 11/30/18 08:55 Dose: 500 mg Nitroglycerin (Nitrostat) 0.4 mg SL SEECOMMENT PRN PRN Reason: Chest Pain * Brimonidine 0.15% Opthalmic*-Non Formulary 0 each EYEBOTH BID [facility] Last Admin: 11/30/18 08:55 Dose: 1 each Pantoprazole Sodium (Protonix) 40 mg PO ACBREAKFAST [facility] Last Admin: 11/30/18 06:31 Dose: 40 mg Senna/Docusate Sodium (Senna Plus) 1 tab PO BID [facility] Last Admin: 11/30/18 08:55 Dose: Not Given Timolol Maleate (Timoptic 0.5% Ophth Soln) 0 ml EYEBOTH BID [facility] Last Admin: 11/30/18 08:55 Dose: 1 drop Discontinued Medications Brimonidine Tartrate (Alphagan 0.2% Ophth Soln) 0 ml EYEBOTH BID [facility] Last Admin: 11/24/18 08:00 Dose: Not Given Brimonidine Tartrate (Alphagan 0.2% Ophth Soln) 0 ml EYEBOTH TID [facility] Furosemide (Lasix) 40 mg PO BIDDIURETIC [facility] Last Admin: 11/22/18 18:37 Dose: Not Given Pioglitazone HCl (Actos) 45 mg PO DAILY [facility] Last Admin: 11/27/18 08:10 Dose: Not Given Pioglitazone HCl (Actos) Confirm Administered Dose 45 mg .ROUTE .STK-MED ONE Stop: 11/23/18 09:07 Last Admin: 11/23/18 09:09 Dose: Not Given Pioglitazone HCl (Actos) Confirm Administered Dose 15 mg .ROUTE .STK-MED ONE Stop: 11/24/18 07:36 Last Admin: 11/24/18 07:56 Dose: Not Given Pioglitazone HCl (Actos) Confirm Administered Dose 45 mg .ROUTE .STK-MED ONE Stop: 11/25/18 07:16 Last Admin: 11/25/18 08:13 Dose: Not Given Pioglitazone HCl (Actos) Confirm Administered Dose 15 mg .ROUTE .STK-MED ONE Stop: 11/26/18 07:40 Last Admin: 11/27/18 20:11 Dose: Not Given Pioglitazone HCl (Actos) Confirm Administered Dose 30 mg .ROUTE .STK-MED ONE Stop: 11/26/18 07:42 Last Admin: 11/27/18 20:11 Dose: Not Given Tuberculin PPD (Aplisol) 5 unit IDERM ONETIME ONE Stop: 11/23/18 08:01 Last Admin: 11/23/18 10:25 Dose: 5 unit - Exam General: Reports: Alert, Cooperative, No Acute Distress HEENT: Reports: Pupils Equal, Pupils Reactive Neck: Reports: Supple Cardiovascular: Reports: Regular Rate, Regular Rhythm GI/Abdominal Exam: Normal Bowel Sounds Back Exam: Reports: Normal Inspection, Full Range of Motion Extremities: Normal Inspection Skin: Reports: Warm, Dry, Intact Neurological: Reports: Cranial Nerves Intact Psy/Mental Status: Reports: Alert, Normal Affect, Normal Mood
== END 2018-11-30 13:15 | disposition home or self-care (01) | DRG 947 ==
LOC: LB.MS 11-22 14:18 → UNDOADMIN 11-22 14:36
PROVIDERS: ADMIT Family Medicine; ATTEND Nurse Practitioner Family
DX: R53.1 Weakness (principal); J96.00 Acute respiratory failure, unspecified whether with hypoxia or hypercapnia; Z68.44 Body mass index [BMI] 60.0-69.9, adult; I50.9 Heart failure, unspecified; R41.89 Other symptoms and signs involving cognitive functions and awareness; H54.7 Unspecified visual loss; E78.00 Pure hypercholesterolemia, unspecified; I11.0 Hypertensive heart disease with heart failure; E11.9 Type 2 diabetes mellitus without complications; E66.9 Obesity, unspecified; Z79.01 Long term (current) use of anticoagulants; Z79.899 Other long term (current) drug therapy; Z79.84 Long term (current) use of oral hypoglycemic drugs; Z99.81 Dependence on supplemental oxygen; Z88.1 Allergy status to other antibiotic agents; Z88.2 Allergy status to sulfonamides; Z87.01 Personal history of pneumonia (recurrent); Z79.82 Long term (current) use of aspirin
CPT/HCPCS: 82962; 86580; 97110-GO; 97110-GP; 97161-GP; 97165-GO; 97530-GO; 97530-GP; 97535-GO; A9270-GY